=== PATIENT | male | born 1955 | race Caucasian/White ===

== ENCOUNTER 2019-02-14 03:00 | Inpatient (IN) | payer OTHER ==
[2019-02-14] VITALS (29 sets, daily range): BP systolic 101–189; BP diastolic 57–110
[~2019-02-14] VITALS: Ht 177.8 cm; Wt 140.2 kg
--- NOTE | 2019-02-14 03:15 | NUR ---
Patient arrived to room at 0245 via EMS. Patient transferred to bed and placed on monitor. Patient AOX4. Patient oriented to room surroundings. NIH scale completed upon admission. Patient on 2LNC. Patient able to answer admission questions. Medications reconciled via home list brought in by patient.
[2019-02-14] MEDS ORDERED: DULA0.75 SQ (04:21)
[2019-02-14] MEDS ORDERED: INSU100V13 SQ (04:21)
[2019-02-14] MEDS ORDERED: INSU100I41 SQ (04:21)
[2019-02-14] MEDS ORDERED: METF10007 PO (04:21)
[2019-02-14] MEDS ORDERED: CHOL100013 PO (04:21)
[2019-02-14] MEDS ORDERED: LOSA25TA54 PO (04:21)
[2019-02-14] MEDS ORDERED: ALLO100T PO (04:21)
[2019-02-14] MEDS ORDERED: ALLO300T PO (04:21)
[2019-02-14] MEDS ORDERED: ATOR40TA59 PO (04:21)
[2019-02-14] MEDS ORDERED: DOXA2TAB2 PO (04:21)
[2019-02-14] MEDS ORDERED: COLC0.6T34 PO (04:21)
--- NOTE | 2019-02-14 04:33 | NUR ---
Nursing Note: Pt states that he had his wallet. Wallet did not get here from [facility]. Called [place] ED and they saw it in the green patient belongings bag. Called EMS and they stated that they left the wallet at his house because there was "significant robison" in there. Informed Patient and his . [facility] completed and scored 6.
[2019-02-14 07:54] LABS: BASO # 0.1 x10^3/uL (0.0-0.2); BASO % 1 % (0-3); EOS # 0.2 x10^3/uL (0.0-0.7); EOS % 2 % (0-3); HEMATOCRIT 41.3 % (39.0-53.0); HEMOGLOBIN 14.1 g/dL (13.0-17.5); LYMPH # 3.1 x10^3/uL (1.0-4.8); LYMPH % 32 % (24-48); MEAN CORPUSCULAR HEMOGLOBIN 34 pg (25-35); MEAN CORPUSCULAR HGB CONC 34 g/dL (31-37); MEAN CORPUSCULAR VOLUME 98 fL (79-100); MONO # 0.7 x10^3/uL (0.0-1.1); MONO % 7 % (0-9); NEUT # 5.6 x10^3/uL (1.8-7.7); NEUT % 59 % (31-73); PLATELET COUNT 210 x10^3/uL (140-400); RED CELL DISTRIBUTION WIDTH 13.7 % (11.5-14.5); WHITE BLOOD COUNT 9.6 x10^3/uL (4.0-11.0)
[2019-02-14 08:02] LABS: PROTHROMBIN TIME PATIENT 12.6 SEC (11.7-14.0)
[2019-02-14 08:28] LABS: ALBUMIN 3.8 g/dL (3.4-5.0); ALBUMIN/GLOBULIN RATIO 1.3 (1.0-1.7); CALCIUM 8.7 mg/dL (8.5-10.1); TOTAL BILIRUBIN 0.8 mg/dL (0.2-1.0); TOTAL PROTEIN 6.8 g/dL (6.4-8.2)
--- NOTE | 2019-02-14 09:34 | RAD ---
EXAM: CT HEAD WITHOUT CONTRAST. HISTORY: Intracranial hemorrhage. TECHNIQUE: Computed tomography of the head was performed without intravenous contrast. *One or more of the following individualized dose reduction techniques were utilized for this examination: 1. Automated exposure control. 2. Adjustment of the mA and/or kV according to patient size. 3. Use of iterative reconstruction technique. COMPARISON: 02/14/2019. FINDINGS: An intraparenchymal hematoma within the right thalamus measures 2.6 x 1.5 cm. There is intraventricular extension along the right ventricular body. A small amount of clot within the occipital horns has increased slightly on the left. Ventricular size is unchanged. Vasogenic edema about the intraparenchymal hematoma has increased mildly without significant mass effect. There is mild mucosal thickening in the right maxillary sinus. There are changes of bilateral cataract surgery. The temporal bones are unremarkable. The calvarium reveals no suspicious lesions. IMPRESSION: 1. Slightly increased vasogenic edema about the right thalamic intraparenchymal hematoma. Intraventricular clot has increased slightly. Electronically signed by: Candy Brown MD (02/14/2019 9:31 AM) [facility]
--- NOTE | 2019-02-14 10:27 | HP ---
ADMIT DATE: 02/14/2019 HISTORY OF PRESENT ILLNESS: The patient is a 63-year-old male patient who was brought to the Emergency Room of [facility] with a complaint of sudden onset of slurring speech and weakness of his left leg and arm. He tried to get up at home and fell because of the weakness [facility] and therefore, he was brought to the Emergency Room of [facility] where he was evaluated. He was taken immediately to the CT and had a CT scan of the head, which showed that he has right intracerebral bleed and therefore he was transferred to [facility] ICU as per Dr. Edwards recommendation. His NIH score was 8 on arrival. When I saw him this morning, he was awake, alert, responding appropriately. He denied any headache, denied any nausea or vomiting. Denied any blurring of vision, tingling, or numbness. He continued to have weakness of both left upper and left lower extremities. PAST MEDICAL HISTORY: Significant for hypertension, hyperlipidemia, and type 2 diabetes mellitus. 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 He has also benign prostatic hypertrophy. PAST SURGICAL HISTORY: Significant for bilateral cataract extraction as well as tonsillectomy. ALLERGIES: He apparently has no known drug allergies. MEDICATIONS: He is currently on following medications: He is on colchicine 0.6 mg once a day, doxazosin 1 mg tablet once a day, allopurinol 300 mg tablet once a day, metformin extended release 1000 mg twice a day, atorvastatin 40 mg at bedtime, cholecalciferol (vitamin D) 1000 international unit once a day, and losartan 25 mg once a day. He is on NovoLog FlexPen 38 units with dinner. He is on Levemir insulin 90 units at night. He is also on Trulicity 0.75 mg in 0.5 mL. He is not taking any Victoza. Indomethacin, atenolol, and lisinopril were discontinued. He has had his flu shot in 12/2018. FAMILY HISTORY: He has 2 brothers and 2 sisters, has 1 older sister and the rest are all younger, they are apparently healthy. His father at the age of 78 because of complication of end-stage renal disease and stroke. Mother is still alive at age of 83 and apparently healthy. SOCIAL HISTORY: He is , has 2 sons and 1 daughter. He does not smoke, drink alcohol, or use any recreational drugs. 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 REVIEW OF SYSTEMS: The patient has had bilateral cataract extraction, but denied any glaucoma or macular degeneration. Denied any earache, tinnitus, or sensorineural deafness. Denied any nosebleeds, stuffy nose, or postnasal drip. Denied any sore throat, sore tongue, toothache, hoarseness of voice, or difficulty swallowing. He denied any nausea, vomiting, diarrhea, or constipation. Denied any hematemesis, melena, or hematochezia. Denied any dysuria, frequency, or hematuria. He denied any chest pain, shortness of breath, orthopnea, or paroxysmal nocturnal dyspnea. He said that he is to have a dry hacking cough that was resolved after they discontinued his lisinopril. Denied any dizziness, lightheadedness, obviously he has weakness on the left side, although he is still able to move his left upper and lower extremities. PHYSICAL EXAMINATION: GENERAL: When I examined him, he looked well with no pallor, jaundice, cyanosis or thyromegaly. No jugular venous distention. No limb edema. VITAL SIGNS: His heart rate was 97, blood pressure was 162/63, temperature was 97.9, respiratory rate was 19, and oxygen saturation was 95% on 2 liters of oxygen. HEAD, EYES, EARS, NOSE, AND THROAT: Showed normocephalic and atraumatic. NECK: Supple. HEART: Normal first and second heart sounds. No gallop or murmur. CHEST: Clear to auscultation. No crepitation or rhonchi. ABDOMEN: Distended, soft, nontender. NEUROLOGIC: He was awake, alert, responding appropriately. All his cranial nerves are intact. He has weakness in his both left upper and left lower extremities, probably 3/5 compared to 5/5 on the right side. LABORATORY DATA: He has had lab work done, which showed his white cell count was 8900, hemoglobin 14, hematocrit 41, MCV 100, and platelet count of 215,000 with normal manual differential. His prothrombin time was 9.9, INR of 1, aPTT was 24, and D-dimer was 0.59. His chemistry showed serum sodium of 143, potassium of 4, chloride 105, bicarbonate 28, anion gap of 10, BUN 19, creatinine 1.2, estimated GFR was 61 mL per minute. His glucose was 181, calcium was 9, and magnesium was 1.3. Total bilirubin, AST, ALT, alkaline phosphatase were normal. CK was 275. Beta-natriuretic peptide was 24. First set of cardiac enzymes showed troponin to be less than 0.017. Total protein was 6.7, albumin was 3.7. Lipase was 92. His chest x-ray showed that the heart is borderline enlarged. The pulmonary vasculature is normal. Lungs and pleural margins are clear. CT scan of the head showed that there is an acute bleed in the right rodrigues radiata that measures 4.2 x 2.4 cm and continued inferiorly into the right thalamus, continued anteriorly and medially to the caudate nucleus. The carranza and white matter appears normal and symmetrical for the patient's age. There is no midline shift, extraaxial fluid collection, or hydrocephalus. There is no focal loss of hahn white matter distention to suggest an acute ischemia. ASSESSMENT AND PLAN: The patient was transferred to [facility] ICU as per Dr. Edwards's recommendation. We will obviously repeat his CT scans, and we will consult Physical and Occupational Therapy as well as Speech Therapy as he is complaining of dry mouth and would like to have a drink. DEBRA BERMAN MD DR: ALEJANDRO/ivanna JOB#: [id number] / [id number]
--- NOTE | 2019-02-14 11:31 | NUR ---
Bedside Swallow evaluation completed. Please refer to full report in intervention section for additional information. Impressions: Moderate oropharyngeal dysphagia w/ L side pocketing of solids and subtle s/s aspiration across consistencies that increased as trials progressed or w/ larger volume trials. Currently no safe consistency identified and pt is considered high risk of aspiration for PO. Recommendations: NPO. ST f/u for dysphagia. Frequent oral care. Pt may have 1-2 single ice chips after oral care under nursing supervision. D/w RN, pt and pt's . Swallowing precautions posted in room.
--- NOTE | 2019-02-14 16:00 | NUR ---
Cardene gtt restarted d/t blood pressure increasing back to 144 systolic.
--- NOTE | 2019-02-14 18:54 | PDOC2 ---
NEUROLOGY CONSULT Date of Admission Date of Admission Full Report Dictated Patient is a pleasant 63-year-old man who developed symptoms at 1 AM with left- sided hemiparesis, left-sided weakness, dysarthria and trouble swallowing. He went to [facility] emergency room where a CT scan revealed a right thalamic hemorrhage. There was some intraventricular extension. A follow-up CT scan this morning did not reveal increased size but slightly more edema but no mass effect. Neurologically his speech is dysarthric. He failed the bedside swallowing exam. His arm is weaker than his leg. He has sensory shading on the left side of his body. Prognosis is fair to good. He will require inpatient r ehabilitation. He has untreated sleep apnea, morbid obesity, diabetes, hyperlipidemia and hypertension. DATE: 02/14/19 TIME: 18:52 Current Medications Current Medications Current Medications Nicardipine HCl 50 mg/Sodium Chloride 250 ml @ 25 mls/hr CONT PRN IV SEE I/O RECORD Last administered on 02/14/19at 16:05; Start 02/14/19 at 03:45 Active Scripts Active Reported Metformin Hcl 1,000 Mg Tablet 2,000 Mg PO HS Trulicity (Dulaglutide) 0.75 Mg/0.5 Ml Pen.injctr 0.75 Mg SQ HS Levemir (Insulin Detemir) 100 Unit/1 Ml Vial 90 Unit SQ HS Novolin 70-30 Flexpen (Insulin NPH Hum/Reg Insulin Hm) 100 Unit/1 Ml Insuln.pen 38 Unit SQ TIDWMEALS Losartan Potassium (Losartan Potassium) 25 Mg Tablet 25 Mg PO HS Vitamin D (Cholecalciferol (Vitamin D3)) 1,000 Unit Capsule 1 Cap PO HS 30 Days Atorvastatin Calcium 40 Mg Tablet 1 Tab PO QHS Allopurinol 300 Mg Tablet 1 Tab PO HS Allopurinol 100 Mg Tablet 1 Tab PO HS Doxazosin Mesylate 2 Mg Tablet 0.5 Tab PO HS Colcrys (Colchicine) 0.6 Mg Tablet 1 Tab PO HS 30 Days Allergies Allergies: Coded Allergies: exenatide (Verified Allergy, Severe, ANGIOEDEMA, 02/14/19) Vitals VITALS Vital Signs Date Time Temp Pulse Resp B/P (MAP) Pulse Ox O2 Delivery O2 Flow Rate FiO2 02/14/19 18:00 98 26 109/86 (94) 95 Nasal Cannula 3.0 02/14/19 16:00 98.2 98.2 Labs Labs Laboratory Tests Test 02/14/19 07:10 02/14/19 12:14 02/14/19 17:13 White Blood Count 9.6 x10^3/uL (4.0-11.0) Red Blood Count 4.20 x10^6/uL (4.30-5.70) Hemoglobin 14.1 g/dL (13.0-17.5) Hematocrit 41.3 % (39.0-53.0) Mean Corpuscular Volume 98 fL (79-100) Mean Corpuscular Hemoglobin 34 pg (25-35) Mean Corpuscular Hemoglobin Concent 34 g/dL (31-37) Red Cell Distribution Width 13.7 % (11.5-14.5) Platelet Count 210 x10^3/uL (140-400) Neutrophils (%) (Auto) 59 % (31-73) Lymphocytes (%) (Auto) 32 % (24-48) Monocytes (%) (Auto) 7 % (0-9) Eosinophils (%) (Auto) 2 % (0-3) Basophils (%) (Auto) 1 % (0-3) Neutrophils # (Auto) 5.6 x10^3/uL (1.8-7.7) Lymphocytes # (Auto) 3.1 x10^3/uL (1.0-4.8) Monocytes # (Auto) 0.7 x10^3/uL (0.0-1.1) Eosinophils # (Auto) 0.2 x10^3/uL (0.0-0.7) Basophils # (Auto) 0.1 x10^3/uL (0.0-0.2) Prothrombin Time 12.6 SEC (11.7-14.0) Prothromb Time International Ratio 1.0 (0.8-1.1) Sodium Level 142 mmol/L (136-145) Potassium Level 4.0 mmol/L (3.5-5.1) Chloride Level 105 mmol/L (98-107) Carbon Dioxide Level 25 mmol/L (21-32) Anion Gap 12 (6-14) Blood Urea Nitrogen 18 mg/dL (8-26) Creatinine 1.0 mg/dL (0.7-1.3) Estimated GFR (Cockcroft-Gault) 76.0 BUN/Creatinine Ratio 18 (6-20) Glucose Level 199 mg/dL (70-99) Calcium Level 8.7 mg/dL (8.5-10.1) Total Bilirubin 0.8 mg/dL (0.2-1.0) Aspartate Amino Transf (AST/SGOT) 35 U/L (15-37) Alanine Aminotransferase (ALT/SGPT) 48 U/L (16-63) Alkaline Phosphatase 61 U/L (46-116) Total Protein 6.8 g/dL (6.4-8.2) Albumin 3.8 g/dL (3.4-5.0) Albumin/Globulin Ratio 1.3 (1.0-1.7) Glucose (Fingerstick) 253 mg/dL (70-99) 210 mg/dL (70-99) Laboratory Tests Test 02/14/19 07:10 02/14/19 12:14 02/14/19 17:13 White Blood Count 9.6 x10^3/uL (4.0-11.0) Red Blood Count 4.20 x10^6/uL (4.30-5.70) Hemoglobin 14.1 g/dL (13.0-17.5) Hematocrit 41.3 % (39.0-53.0) Mean Corpuscular Volume 98 fL (79-100) Mean Corpuscular Hemoglobin 34 pg (25-35) Mean Corpuscular Hemoglobin Concent 34 g/dL (31-37) Red Cell Distribution Width 13.7 % (11.5-14.5) Platelet Count 210 x10^3/uL (140-400) Neutrophils (%) (Auto) 59 % (31-73) Lymphocytes (%) (Auto) 32 % (24-48) Monocytes (%) (Auto) 7 % (0-9) Eosinophils (%) (Auto) 2 % (0-3) Basophils (%) (Auto) 1 % (0-3) Neutrophils # (Auto) 5.6 x10^3/uL (1.8-7.7) Lymphocytes # (Auto) 3.1 x10^3/uL (1.0-4.8) Monocytes # (Auto) 0.7 x10^3/uL (0.0-1.1) Eosinophils # (Auto) 0.2 x10^3/uL (0.0-0.7) Basophils # (Auto) 0.1 x10^3/uL (0.0-0.2) Prothrombin Time 12.6 SEC (11.7-14.0) Prothromb Time International Ratio 1.0 (0.8-1.1) Sodium Level 142 mmol/L (136-145) Potassium Level 4.0 mmol/L (3.5-5.1) Chloride Level 105 mmol/L (98-107) Carbon Dioxide Level 25 mmol/L (21-32) Anion Gap 12 (6-14) Blood Urea Nitrogen 18 mg/dL (8-26) Creatinine 1.0 mg/dL (0.7-1.3) Estimated GFR (Cockcroft-Gault) 76.0 BUN/Creatinine Ratio 18 (6-20) Glucose Level 199 mg/dL (70-99) Calcium Level 8.7 mg/dL (8.5-10.1) Total Bilirubin 0.8 mg/dL (0.2-1.0) Aspartate Amino Transf (AST/SGOT) 35 U/L (15-37) Alanine Aminotransferase (ALT/SGPT) 48 U/L (16-63) Alkaline Phosphatase 61 U/L (46-116) Total Protein 6.8 g/dL (6.4-8.2) Albumin 3.8 g/dL (3.4-5.0) Albumin/Globulin Ratio 1.3 (1.0-1.7) Glucose (Fingerstick) 253 mg/dL (70-99) 210 mg/dL (70-99) ANNA GRISSOM MD Feb 14, 2019 18:54
--- NOTE | 2019-02-14 20:01 | PDOC ---
Provider Note Provider Note Patient seen and examined at 1300 admitted with left-sided hemiparesis, left-sided weakness, dysarthria and trouble swallowing. He went to [facility] emergency room where a CT scan re vealed a right thalamic hemorrhage. There was some intraventricular extension. on exam speech is dysarthric. His arm is weaker than his leg. He has sensory shading on the left side of his body. will likely need inpatient rehab will follow MARIANA EVERETT MD Feb 14, 2019 20:01
--- NOTE | 2019-02-14 20:47 | CONS ---
DATE OF CONSULTATION: 02/14/2019 REFERRING PHYSICIAN: Elyse Alejandre M.D. REASON FOR CONSULTATION: Thalamic hemorrhage with intraventricular extension. HISTORY OF PRESENT ILLNESS: The patient is a very pleasant 63-year-old man who noted symptoms early this morning around 1:00 a.m. 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 He was getting ready to administer his insulin when suddenly he dropped the insulin and could not use his left arm. He tried to get up and he could not use his left leg. He fell because of the weakness. 911 was called and he was taken to the Emergency Room at [facility]. CT scan was performed and revealed a right thalamic hemorrhage. He was transferred to [facility] for further evaluation. He does not complain of any headache. He has never had similar symptoms. He does have longstanding diabetes for 15 years. He has hyperlipidemia, hypertension, and untreated sleep apnea as well as morbid obesity. He has not had any difficulty moving the right side, but he has weakness on the left side with numbness. He has not noticed any loss of vision or hearing. He has not noticed any cognitive loss. He has noticed his speech is off and he has difficulty swallowing. PAST MEDICAL HISTORY: 1. Hypertension. 2. Hyperlipidemia. 3. Type 2 diabetes for 15 years. 4. Morbid obesity. 5. Untreated sleep apnea. 6. History of gout. 7. Benign prostatic hypertrophy. 8. Bilateral cataract extraction with lens implants. 9. Tonsillectomy. ALLERGIES: No known allergies to drugs. MEDICATIONS PRIOR TO ADMISSION: Colchicine 0.6 mg, doxazosin 1 mg, allopurinol 300 mg, metformin extended release 1000 mg twice per day, atorvastatin 40 mg, vitamin D 1000 International Units, losartan 25 mg, and NovoLog FlexPen. He also uses Levemir and Trulicity 0.75 mg. FAMILY HISTORY: His father at 78 from complications of end-stage renal disease and stroke. Mother is living at 83. He has 2 brothers and 2 sisters, who are healthy. SOCIAL HISTORY: He is and has 2 sons and a daughter. He has grandchildren. They all live out of town. He is a lifelong nonsmoker. He does not drink alcohol or use recreational drugs. 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 REVIEW OF SYSTEMS: He does not have any headache. There has been no change in vision or hearing. He has had a change in speech and swallow. He does not have nose or sinus trouble. He does not have shortness of breath, chest or abdominal pain. Does not currently complain of bone or joint pain. There has been no fever or rash. Does not have any gastrointestinal or genitourinary complaints. Does have numbness on the left side of his body. He does have weakness on the left side of his body. He does not complain of easy bruising, bleeding, or swelling. He does have sleep apnea. He does have diabetes. PHYSICAL EXAMINATION: VITAL SIGNS: The blood pressure was 144/65, pulse 94, respirations 22, temperature 98.2 degrees Fahrenheit. Oximetry was 97% on 3 L nasal cannula. His weight was 138.4 kg, height 70 inches with a calculated body mass index of 43.8. GENERAL: He was alert, awake, and cooperative. Speech was slightly dysarthric, but easily understandable. He did not have any word-finding difficulty. His fund of recent and remote knowledge was intact. Attention and concentration were intact. He appeared well groomed and well nourished. NEUROLOGIC: Examination of the cranial nerves revealed visual wilkins were full to confrontation. Extraocular movements were intact. The eyes were conjugate. Pursuit movements were smooth and saccadic eye movements were without dysmetria. Pupils were 3 mm and reactive. He was not able to cooperate for funduscopic examination. Facial sensation was shaded in the left cheek. The muscles of mastication and facial expression were powerful, although there was delay of initiation on the left side to smile. Hearing was intact to finger rub. The palate arched symmetrically and the tongue was midline with full range of motion. Sternocleidomastoid and trapezius were powerful. Muscle bulk and tone were normal. Power was full on the right side. On the left side, there was weakness with finger abduction, elbow flexion and extension and arm abduction 4/5. The finger abduction was 3/5. In the lower extremities, he had weakness of hip and knee flexion 4-4+/5. Dorsi and plantar flexion were fairly powerful. Reflexes were diminished throughout. The left toe was upgoing whereas the right toe was downgoing. Coordination testing with [id number], [id number], fine motor and rapid alternating movements could not be performed on the left. He was very impaired. When he tried to do [id number], he had ataxia. Sensory exam was shaded on the left side to pain, light touch, proprioception, graphesthesia, cold thermal, and vibration. He could perceive some vibration in the arm, but not in the leg. He had extinction to double simultaneous stimulation on the left. He could not feel light touch even with his eyes open. Gait was not testable. NECK: Auscultation of the carotid arteries did not reveal a bruit. HEART: Rhythm was regular without a murmur. EXTREMITIES: Peripheral pulses were symmetric. There was some edema in the feet. REVIEW OF LABORATORY DATA: CBC revealed a normal white blood cell count, hemoglobin, hematocrit, and platelet count. Chemistry from 02/14/2019 revealed normal electrolytes, BUN, and creatinine. The GFR was calculated at 76. Glucose was elevated at 199. Calcium was normal as was total protein and albumin. Liver enzymes were not elevated. PT/INR was 1. A CT scan of the brain was performed on 02/14/2019 and revealed a 2.6 x 1.5 cm right thalamic hemorrhage with intraventricular extension along the right ventricular body. There was a small clot within the occipital horns. There was no evidence of developing edema. There was some vasogenic edema about the intraparenchymal hemorrhage that was slightly increased, but there was no significant mass effect. IMPRESSION: The patient is a pleasant 63-year-old man who had a hypertensive hemorrhage in the right thalamus causing dysarthria, dysphagia, left hemiparesis, and left hemisensory loss. He still has some strength in the left leg. Prognosis for recovery is fair. RECOMMENDATIONS: We discussed the importance of treating the sleep apnea as this is a risk factor for stroke. He will also need tighter control of the diabetes, good control of blood pressure, and we will need to measure a fasting lipid profile to make sure the LDL cholesterol is less than 70 with his current medical regimen. I appreciate being involved in his care. Ultimately, he will need inpatient rehabilitation. ANNA GRISSOM MD DR: ARSALAN/ivanna JOB#: [id number] / [id number] ranjit Ocampo Dr.
[2019-02-15] VITALS (18 sets, daily range): BP systolic 124–160; BP diastolic 65–90
--- NOTE | 2019-02-15 02:00 | NUR ---
Patient requested to sit at the side of the bed--assisted with by 2RNs; patient sat at the side of the bed [id number]. Patient did lean minimally to the left but was able to maintain his balance. Patient is now able to lift his left arm on command and keep it elevated without drift. Patient continues to slur his words but is easily understood, there is no change in minimal droop of left side of mouth. RN stayed with the patient the entire time while he was sitting.
[2019-02-15 04:55] LABS: HEMATOCRIT 40.3 % (39.0-53.0); HEMOGLOBIN 13.7 g/dL (13.0-17.5); RED BLOOD COUNT 4.09 x10^6/uL (4.30-5.70); RED CELL DISTRIBUTION WIDTH 13.6 % (11.5-14.5); WHITE BLOOD COUNT 8.9 x10^3/uL (4.0-11.0)
[2019-02-15 06:42] LABS: CALCIUM 8.7 mg/dL (8.5-10.1); POTASSIUM 3.9 mmol/L (3.5-5.1)
[2019-02-15 06:43] LABS: CHOLESTEROL/HDL RATIO 5.2
--- NOTE | 2019-02-15 08:50 | PN ---
DATE: 02/15/2019 SUBJECTIVE: The patient is resting slightly propped up in bed, no apparent distress, awake, alert. On questioning him, he denied any complaint, in particular, denied any headache, nausea, vomiting. He was seen in consultation by the neurosurgeon and neurologist. He is not a candidate for any surgical intervention. The plan is to do a CT angio of the neck and brain and he probably eventually need to be in a rehab center. He prefers to go to the [place]. PHYSICAL EXAMINATION: GENERAL: When I examined him this morning, he looked well and was clearly in no apparent respiratory distress. No pallor, jaundice, cyanosis or thyromegaly. No jugular venous distention. No lower limb edema. VITAL SIGNS: Her heart rate was 92, blood pressure was 130/74, temperature was 98.6, respiratory rate 20, and oxygen saturation was 96% on 3 liters of oxygen by nasal cannula. HEAD, EYES, EARS, NOSE AND THROAT: Showed normocephalic, atraumatic. NECK: Supple. HEART: Showed normal first and second heart sounds. No gallop, rub or murmur. CHEST: Clear to auscultation. No crepitation or rhonchi. ABDOMEN: Distended, soft, nontender. NEUROLOGIC: He is awake, alert, responding appropriately. All cranial nerves intact. Continued to have some dysarthria and left sided hemiparesis, worse in the upper than lower extremity. His intake and output are incompletely recorded. LABORATORY DATA: Her lab work this morning showed a white cell count of 8900, hemoglobin 13.7, hematocrit 40, MCV 99 and platelet count 211,000. His chemistry showed a serum sodium of 143, potassium 3.9, chloride 105, bicarbonate 26, anion gap of 12, BUN 20, creatinine 1, estimated GFR was 76 mL per minute, his glucose was 107, calcium was 8.7. Serum triglycerides were 195, total cholesterol 140, LDL cholesterol was 74 and HDL was 27, ratio 5.2. His prothrombin time was 12.6, INR 1. ASSESSMENT: 1. 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 Other medical problems include, 2. Hypertension. 3. Hyperlipidemia. 4. Type 2 diabetes mellitus. 5. Morbid obesity. 6. Untreated obstructive sleep apnea. 7. Gout. 8. Benign prostatic hypertrophy. PLAN: To await the Speech Therapy for video swallowing evaluation. Start the process of physical and occupational therapy. He will have CT angio of the neck and brain and hopefully tomorrow, we can discharge him to a long term facility and/or the [facility] for inpatient rehabilitation. DEBRA BERMAN MD DR: ALEJANDRO/ivanna JOB#: [id number] / [id number]
[2019-02-15] MEDS ORDERED: ACETAMINOPHEN 650 MG SUPP.RECT. PR PRN (09:15)
[2019-02-15] MEDS ORDERED: LABETALOL 20 MG/4 ML DISP.SYRIN. IVP PRN (09:15)
[2019-02-15] MEDS ORDERED: 0.9 % SODIUM CHLORIDE 10 ML DISP.SYRIN. IV PRN (09:15)
[2019-02-15] MEDS ORDERED: ONDANSETRON PF 4 MG/2 ML VIAL. IV PRN (09:15)
[2019-02-15] MEDS ORDERED: PHARMACY TO REVIEW MEDS MC PRN (09:15)
[2019-02-15] MEDS ORDERED: IOHEXOL 300 MG/ML 100ML VIAL. IV ONE (09:30)
[2019-02-15] MEDS: hydrALAZINE 20 MG/ML VIAL. IVP PRN ×2 (09:51→11:26)
--- NOTE | 2019-02-15 11:19 | PDOC ---
PROGRESS NOTES Assessment Hypertensive right thalamic hemorrhage with left-sided sensorimotor findings, right ptosis. There is intraventricular extension. Clinically he is better Lipid profile noted Plan CT angiogram MRI brain Rehabilitation modalities Echocardiogram Await swallow evaluation Resume statin when able to swallow Neurosurgery is following Possible transfer out of ICU today Treat the sleep apnea as outpatient Tighter control of the diabetes, good control of blood pressure Discussed with patient and his . Subjective Denies headache Objective Vital Signs Date Time Temp Pulse Resp B/P (MAP) Pulse Ox O2 Delivery O2 Flow Rate FiO2 02/15/19 11:08 86 22 160/90 (113) 97 Nasal Cannula 3.0 02/15/19 07:57 98.6 98.6 Intake and Output 02/15/19 07:00 Intake Total 763.94 ml Output Total 1300 ml Balance -536.06 ml Intake Oral 0 ml IV Total 763.94 ml Output Urine Total 1300 ml PHYSICAL EXAM Alert. Oriented to time, place and person. PERRL. EOMI. CN: Right ptosis Muscle tone: normal. Muscle strength: 4/5 left hemiparesis DTR: 2+ Plantar reflex: flexor Gait: not examined in bed. Sensory exam: patchy loss left face, arm, leg. No cerebellar signs elicited. Review of Relevant I have reviewed the following items julian (where applicable) has been applied. Labs Laboratory Tests Test 02/14/19 07:10 02/14/19 12:14 02/14/19 17:13 02/14/19 23:52 White Blood Count 9.6 x10^3/uL (4.0-11.0) Red Blood Count 4.20 x10^6/uL (4.30-5.70) Hemoglobin 14.1 g/dL (13.0-17.5) Hematocrit 41.3 % (39.0-53.0) Mean Corpuscular Volume 98 fL (79-100) Mean Corpuscular Hemoglobin 34 pg (25-35) Mean Corpuscular Hemoglobin Concent 34 g/dL (31-37) Red Cell Distribution Width 13.7 % (11.5-14.5) Platelet Count 210 x10^3/uL (140-400) Neutrophils (%) (Auto) 59 % (31-73) Lymphocytes (%) (Auto) 32 % (24-48) Monocytes (%) (Auto) 7 % (0-9) Eosinophils (%) (Auto) 2 % (0-3) Basophils (%) (Auto) 1 % (0-3) Neutrophils # (Auto) 5.6 x10^3/uL (1.8-7.7) Lymphocytes # (Auto) 3.1 x10^3/uL (1.0-4.8) Monocytes # (Auto) 0.7 x10^3/uL (0.0-1.1) Eosinophils # (Auto) 0.2 x10^3/uL (0.0-0.7) Basophils # (Auto) 0.1 x10^3/uL (0.0-0.2) Prothrombin Time 12.6 SEC (11.7-14.0) Prothromb Time International Ratio 1.0 (0.8-1.1) Sodium Level 142 mmol/L (136-145) Potassium Level 4.0 mmol/L (3.5-5.1) Chloride Level 105 mmol/L (98-107) Carbon Dioxide Level 25 mmol/L (21-32) Anion Gap 12 (6-14) Blood Urea Nitrogen 18 mg/dL (8-26) Creatinine 1.0 mg/dL (0.7-1.3) Estimated GFR (Cockcroft-Gault) 76.0 BUN/Creatinine Ratio 18 (6-20) Glucose Level 199 mg/dL (70-99) Calcium Level 8.7 mg/dL (8.5-10.1) Total Bilirubin 0.8 mg/dL (0.2-1.0) Aspartate Amino Transf (AST/SGOT) 35 U/L (15-37) Alanine Aminotransferase (ALT/SGPT) 48 U/L (16-63) Alkaline Phosphatase 61 U/L (46-116) Total Protein 6.8 g/dL (6.4-8.2) Albumin 3.8 g/dL (3.4-5.0) Albumin/Globulin Ratio 1.3 (1.0-1.7) Glucose (Fingerstick) 253 mg/dL (70-99) 210 mg/dL (70-99) 185 mg/dL (70-99) Test 02/15/19 04:10 02/15/19 05:55 White Blood Count 8.9 x10^3/uL (4.0-11.0) Red Blood Count 4.09 x10^6/uL (4.30-5.70) Hemoglobin 13.7 g/dL (13.0-17.5) Hematocrit 40.3 % (39.0-53.0) Mean Corpuscular Volume 99 fL (79-100) Mean Corpuscular Hemoglobin 34 pg (25-35) Mean Corpuscular Hemoglobin Concent 34 g/dL (31-37) Red Cell Distribution Width 13.6 % (11.5-14.5) Platelet Count 211 x10^3/uL (140-400) Sodium Level 143 mmol/L (136-145) Potassium Level 3.9 mmol/L (3.5-5.1) Chloride Level 105 mmol/L (98-107) Carbon Dioxide Level 26 mmol/L (21-32) Anion Gap 12 (6-14) Blood Urea Nitrogen 20 mg/dL (8-26) Creatinine 1.0 mg/dL (0.7-1.3) Estimated GFR (Cockcroft-Gault) 76.0 Glucose Level 207 mg/dL (70-99) Calcium Level 8.7 mg/dL (8.5-10.1) Triglycerides Level 195 mg/dL (0-150) Cholesterol Level 140 mg/dL (0-200) LDL Cholesterol, Calculated 74 mg/dL (0-100) VLDL Cholesterol, Calculated 39 mg/dL (0-40) Non-HDL Cholesterol Calculated 113 mg/dL (0-129) HDL Cholesterol 27 mg/dL (40-60) Cholesterol/HDL Ratio 5.2 Glucose (Fingerstick) 173 mg/dL (70-99) Laboratory Tests Test 02/14/19 12:14 02/14/19 17:13 02/14/19 23:52 02/15/19 04:10 Glucose (Fingerstick) 253 mg/dL (70-99) 210 mg/dL (70-99) 185 mg/dL (70-99) White Blood Count 8.9 x10^3/uL (4.0-11.0) Red Blood Count 4.09 x10^6/uL (4.30-5.70) Hemoglobin 13.7 g/dL (13.0-17.5) Hematocrit 40.3 % (39.0-53.0) Mean Corpuscular Volume 99 fL (79-100) Mean Corpuscular Hemoglobin 34 pg (25-35) Mean Corpuscular Hemoglobin Concent 34 g/dL (31-37) Red Cell Distribution Width 13.6 % (11.5-14.5) Platelet Count 211 x10^3/uL (140-400) Sodium Level 143 mmol/L (136-145) Potassium Level 3.9 mmol/L (3.5-5.1) Chloride Level 105 mmol/L (98-107) Carbon Dioxide Level 26 mmol/L (21-32) Anion Gap 12 (6-14) Blood Urea Nitrogen 20 mg/dL (8-26) Creatinine 1.0 mg/dL (0.7-1.3) Estimated GFR (Cockcroft-Gault) 76.0 Glucose Level 207 mg/dL (70-99) Calcium Level 8.7 mg/dL (8.5-10.1) Triglycerides Level 195 mg/dL (0-150) Cholesterol Level 140 mg/dL (0-200) LDL Cholesterol, Calculated 74 mg/dL (0-100) VLDL Cholesterol, Calculated 39 mg/dL (0-40) Non-HDL Cholesterol Calculated 113 mg/dL (0-129) HDL Cholesterol 27 mg/dL (40-60) Cholesterol/HDL Ratio 5.2 Test 02/15/19 05:55 Glucose (Fingerstick) 173 mg/dL (70-99) Medications Current Medications Nicardipine HCl 50 mg/Sodium Chloride 250 ml @ 25 mls/hr CONT PRN IV SEE I/O RECORD Last administered on 02/14/19at 16:05; Start 02/14/19 at 03:45 Info (Review Meds) 1 ea PRN 1X PRN SEE COMMENTS; Start 02/15/19 at 09:15 Sodium Chloride (Normal Saline Flush) 3 ml QSHIFT PRN IV AFTER MEDS AND BLOOD DRAWS; Start 02/15/19 at 09:15 Acetaminophen (Tylenol Supp) 650 mg PRN Q6HRS PRN SC FEVER > 100.5'F; Start 02/15/19 at 09:15 Labetalol HCl (Normodyne Iv Push) 10 mg PRN Q10MIN PRN IVP HYPERTENSION; Start 02/15/19 at 09:15 Hydralazine HCl (Apresoline Inj) 10 mg PRN Q10MIN PRN IVP HYPERTENSION Last administered on 02/15/19at 09:51; Start 02/15/19 at 09:15 Nicardipine HCl 50 mg/Sodium Chloride 250 ml @ 25 mls/hr CONT PRN IV HYPERTENSION; Start 02/15/19 at 09:15; Status UNV Ondansetron HCl (Zofran) 4 mg PRN Q6HRS PRN IV NAUSEA/VOMITING; Start 02/15/19 at 09:15 Iohexol (Omnipaque 300 Mg/ml) 75 ml 1X ONCE IV Last administered on 02/15/19at 09:30; Start 02/15/19 at 09:30; Stop 02/15/19 at 09:31; Status DC Active Scripts Active Reported Metformin Hcl 1,000 Mg Tablet 2,000 Mg PO HS Trulicity (Dulaglutide) 0.75 Mg/0.5 Ml Pen.injctr 0.75 Mg SQ HS Levemir (Insulin Detemir) 100 Unit/1 Ml Vial 90 Unit SQ HS Novolin 70-30 Flexpen (Insulin NPH Hum/Reg Insulin Hm) 100 Unit/1 Ml Insuln.pen 38 Unit SQ TIDWMEALS Losartan Potassium (Losartan Potassium) 25 Mg Tablet 25 Mg PO HS Vitamin D (Cholecalciferol (Vitamin D3)) 1,000 Unit Capsule 1 Cap PO HS 30 Days Atorvastatin Calcium 40 Mg Tablet 1 Tab PO QHS Allopurinol 300 Mg Tablet 1 Tab PO HS Allopurinol 100 Mg Tablet 1 Tab PO HS Doxazosin Mesylate 2 Mg Tablet 0.5 Tab PO HS Colcrys (Colchicine) 0.6 Mg Tablet 1 Tab PO HS 30 Days Vitals/I & O Vital Sign - Last 24 Hours 02/14/19 02/14/19 02/14/19 02/14/19 12:00 12:00 13:00 14:00 Temp 98.2 98.2 Pulse 98 105 102 Resp B/P (MAP) 127/66 (86) 136/66 (89) 118/91 (100) Pulse Ox 94 96 95 O2 Delivery Nasal Cannula Nasal Cannula Nasal Cannula Nasal Cannula O2 Flow Rate 3.0 4.0 3.0 3.0 02/14/19 02/14/19 02/14/19 02/14/19 15:00 16:00 16:00 17:00 Temp 98.2 98.2 Pulse 90 94 95 Resp 28 24 B/P (MAP) 111/61 (78) 144/65 (91) 114/67 (83) Pulse Ox 90 97 96 O2 Delivery Nasal Cannula Nasal Cannula Nasal Cannula Nasal Cannula O2 Flow Rate 3.0 3.0 3.0 3.0 02/14/19 02/14/19 02/14/19 02/14/19 18:00 19:00 20:00 20:00 Temp 98.9 98.9 Pulse 98 94 84 Resp 26 16 20 B/P (MAP) 109/86 (94) 111/62 (78) 109/57 (74) Pulse Ox 95 95 94 O2 Delivery Nasal Cannula Nasal Cannula Nasal Cannula Nasal Cannula O2 Flow Rate 3.0 3.0 3.0 3.0 02/14/19 02/14/19 02/14/19 02/14/19 20:30 20:45 21:00 22:00 Pulse 96 86 86 82 Resp 20 20 20 28 B/P (MAP) 117/63 (81) 129/66 (87) 113/69 (84) 123/67 (85) Pulse Ox 97 94 96 94 O2 Delivery Nasal Cannula Nasal Cannula Nasal Cannula Nasal Cannula O2 Flow Rate 3.0 3.0 3.0 3.0 02/14/19 02/14/19 02/14/19 02/15/19 23:00 23:59 23:59 01:00 Temp 97.9 97.9 Pulse 76 86 81 Resp 20 20 20 B/P (MAP) 124/63 (83) 109/63 (78) 125/65 (85) Pulse Ox 94 92 96 O2 Delivery Nasal Cannula Nasal Cannula Nasal Cannula Venturi Mask O2 Flow Rate 3.0 3.0 3.0 02/15/19 02/15/19 02/15/19 02/15/19 02:00 02:30 03:00 04:00 Temp 98.4 98.4 Pulse 98 94 92 90 Resp 24 24 22 B/P (MAP) 153/80 (104) 140/83 (102) 144/75 (98) 141/78 (99) Pulse Ox 100 96 93 93 O2 Delivery Venturi Mask Venturi Mask Room Air Room Air 02/15/19 02/15/19 02/15/19 02/15/19 04:00 05:00 06:00 07:00 Pulse 87 91 94 Resp 24 18 18 B/P (MAP) 156/71 (99) 141/76 (97) 154/69 (97) Pulse Ox 93 95 95 O2 Delivery Room Air Room Air Room Air Venturi Mask O2 Flow Rate 02/15/19 02/15/19 02/15/19 02/15/19 07:57 07:58 09:03 09:51 Temp 98.6 98.6 Pulse 92 86 82 Resp 20 B/P (MAP) 130/74 (92) 124/70 (88) 133/88 Pulse Ox 96 O2 Delivery Nasal Cannula Nasal Cannula O2 Flow Rate 3.0 3.0 02/15/19 02/15/19 02/15/19 10:00 10:51 11:08 Pulse 82 80 86 Resp 20 22 B/P (MAP) 149/89 (109) 145/80 (101) 160/90 (113) Pulse Ox 94 96 97 O2 Delivery Nasal Cannula Nasal Cannula Nasal Cannula O2 Flow Rate 3.0 3.0 3.0 Intake and Output 02/14/19 02/14/19 02/15/19 15:00 23:00 07:00 Intake Total 570.94 ml 193 ml Output Total 500 ml 800 ml Balance 70.94 ml -[address] 02/14: An intraparenchymal hematoma within the right thalamus measures 2.6 x 1.5 cm. There is intraventricular extension along the right ventricular body. A small amount of clot within the occipital horns has increased slightly on the left. Ventricular size is unchanged. Vasogenic edema about the intraparenchymal hematoma has increased mildly without significant mass effect. There is mild mucosal thickening in the right maxillary sinus. There are changes of bilateral cataract surgery. The temporal bones are unremarkable. The calvarium reveals no suspicious lesions. IMPRESSION: 1. Slightly increased vasogenic edema about the right thalamic intraparenchymal hematoma. Intraventricular clot has increased slightly. EUGENE JAIN MD Feb 15, 2019 11:19
--- NOTE | 2019-02-15 12:38 | CARD ---
MR#: [id number] Date of Study: 02/15/2019 Ordering Physician: EUGENE JAIN, Referring Physician: EUGENE JAIN Tech: Isadora Jane VALERIA APPROVED REPORT EXAM: Two-dimensional and M-mode echocardiogram with Doppler, color Doppler with bubble study. Other Information Quality : Technically LimitedHR: 80bpm Rhythm : NSRTechnically limited study due to body habitus. INDICATION CVA/TIA 2D DIMENSIONS RVDd2.8 (2.9-3.5cm)IVSd1.5 (0.7-1.1cm) Aortic Root(2D)3.7 (2.0-3.7cm)LVDd4.5 (3.9-5.9cm) LVOT Diameter2.5 (1.8-2.4cm)PWd1.4 (0.7-1.1cm) LVDs3.1 (2.5-4.0cm)FS (%) 31.5 % SV55.2 mlLVEF(%)59.6 (>50%) M-Mode DIMENSIONS Left Atrium(MM)4.00 (2.5-4.0cm)Aortic Root3.89 (2.2-3.7cm) Aortic Cusp Exc2.96 (1.5-2.0cm) Aortic Valve AoV Peak Cheng.205.9cm/sAoV VTI34.5cm AO Peak GR.17.0mmHgLVOT VTI 25.89cm AO Mean GR.10mmHgAVA (VTI)3.50cm2 Mitral Valve MV E Lwbrxndh68.9cm/sMV DECEL [id number] MV A Ckbjapfj64.7cm/sE/A Ratio1.1 MV A [id number] TDI Lateral E' P. V9.20cm/sMedial E' P. V7.92cm/s E/Lateral E'10.2E/Medial E'11.9 LEFT VENTRICLE The left ventricle is normal size. There is mild to moderate concentric left ventricular hypertrophy. The left ventricular systolic function is normal. The Ejection Fraction is 60-65%. There is normal L V segmental wall motion. Transmitral Doppler flow pattern is Grade II-pseudonormal filling dynamics. RIGHT VENTRICLE The right ventricle is normal size. There is normal right ventricular wall thickness. Right ventricul ar function cannot be assessed due to poor image quality. ATRIA The left atrium size is normal. The right atrium size is normal. The interatrial septum is intact wit h no evidence for an atrial septal defect or patent foramen ovale as noted on 2-D or Doppler imaging. Injection of bubbles is not conclusive due to poor image quality. AORTIC VALVE The aortic valve is normal in structure and function. The aortic valve is mildly thickened. Doppler a nd Color Flow revealed trace aortic regurgitation. There is no significant aortic valvular stenosis. MITRAL VALVE The mitral valve is normal in structure and function. There is no evidence of mitral valve prolapse. There is no mitral valve stenosis. Doppler and Color Flow revealed no mitral valve regurgitation note d. TRICUSPID VALVE The tricuspid valve is not well visualized. Doppler and Color Flow revealed no tricuspid valve regurg itation noted. There is no tricuspid valve prolapse or vegetation. PULMONIC VALVE The pulmonic valve is not well visualized. GREAT VESSELS The aortic root is mildly enlarged. The ascending aorta is Mildly dilated at 4.0cm. The IVC is normal in size and collapses >50% with inspiration. PERICARDIAL EFFUSION There is no evidence of significant pericardial effusion. Critical Notification Critical Value: No <Conclusion> The left ventricular systolic function is normal. The Ejection Fraction is 60-65%. There is normal LV segmental wall motion. Doppler and Color Flow revealed trace aortic regurgitation. There is no evidence of significant pericardial effusion. The ascending aorta is Mildly dilated at 4.0cm. Injection of bubbles is not conclusive due to poor image quality. Recommend PAPA for definitive evaluation if clinical suspicion is high. Signed by : Nnamdi Capps, Electronically Approved : 02/15/2019 12:37:45
--- NOTE | 2019-02-15 13:39 | RAD ---
MRI Brain without contrast History: Right thalamic hemorrhage Technique: Multiplanar, multisequential noncontrast MR imaging was performed of the brain. Comparison: 02/14/[address] exam Findings: As seen on CT, there is signal abnormality of parenchymal hemorrhage centered in the right thalamus about 2.2 cm AP by 1.9 cm transverse by about 2 cm CC. This is variably hyperintense on T1 sequence and centrally hyperintense on the T2 sequence, peripheral T2 hypointense signal. There is associated decreased signal on the gradient echo sequence. There is adjacent moderate vasogenic edema signified by T2 and FLAIR hyperintense signal. There is also intraventricular hemorrhage greater in the right lateral ventricle, also dependently in the occipital horns bilaterally. Septum pellucidum is near the midline. No other separate focus of parenchymal hemorrhage is identified. Cerebellar tonsils are normal in location. There is very minimal T2 and FLAIR hyperintense signal of the periventricular white matter bilaterally, also minimal T2 and FLAIR hyperintense abnormality of the bifrontal deep white matter. Ventricles are not significantly dilated. There is mild diffusion signal abnormality at the periphery of the right thalamic hematoma, no separate focus of restricted diffusion. There has been lens surgery bilaterally. There is very mild right maxillary sinus mucosal thickening. There is preservation of the major arterial flow voids at the skull base. There is mild fluid and thickening of the right mastoid air cells. There is nonspecific heterogeneity of the marrow of the nonexpanded clivus. Impression: 1. There is again acute/early subacute right thalamic parenchymal hematoma with adjacent vasogenic edema, also intraventricular hemorrhage. 2. Other very mild T2 and FLAIR hyperintense signal of the supratentorial parenchyma is probably due to chronic 2 chronic microvascular ischemic disease. Electronically signed by: Jagjit Pollard MD (02/15/2019 1:36 PM) [id number]
--- NOTE | 2019-02-15 14:50 | NUR ---
SS following for discharge planning. SS reviewed pt chart. Pt is from home with spouse and is currently on requiring oxygen. PT/OT recommended acute rehabilitation at discharge. SS met with pt and family in room to discuss discharge planning. Pt requested referral be phoned and faxed to the [facility], ext, [phone]; fax [phone]. SS phoned and faxed referral. Ceci from the [facility] at the [facility] requested that pt complete 10-10EC form to determine co-pay. Form provided to pt. SS will continue to follow for discharge planning.
--- NOTE | 2019-02-15 18:09 | RAD ---
CTA head and neck History: Right thalamic hemorrhage Technique: After bolus of intravenous contrast, volumetric CT data acquisition was acquired of the head and neck. Multiplanar reconstruction images to include MIP and 3-D reconstruction images are submitted. Exposure: One or more of the following individualized dose reduction techniques were utilized for this examination: 1. Automated exposure control 2. Adjustment of the mA and/or kV according to patient size 3. Use of iterative reconstruction technique. Comparison: Noncontrast head CT 02/14/2019 Any determination of stenosis is based on NASCET criteria. CTA head: Findings: Exam is of very limited quality due to the poor contrast bolus in the arteries, grossly visualized internal carotid arteries as well as basilar and intradural vertebral arteries. There is also venous contamination. Exam does not accurately evaluate for aneurysm or stenosis. No obvious increased vascularity is seen near the right thalamic parenchymal hemorrhage. Impression: 1. Exam is very limited as stated, essentially nondiagnostic. Attempt at repeat exam should be considered. Neck CTA: Findings: Exam is limited due to motion as well as poor contrast bolus in the arteries, also venous contamination. There is visualization of segments of the common carotid arteries as well as cervical internal carotid arteries bilaterally although cannot accurately evaluate for dissection flap or stenosis. There is visualization of segments of the vertebral arteries bilaterally. There is degenerative disc disease greatest at C5-6 and C6-7. There is multilevel cervical facet degenerative change. Impression: 1. Exam is very limited stated, cannot accurately evaluate for stenosis or dissection flap on this exam, gross visualization of the cervical arterial vasculature. Electronically signed by: Jagjit Pollard MD (02/15/2019 6:06 PM) [id number]
[2019-02-15] MEDS ORDERED: DEXTROSE 50% 25 GM / 50ML DISP.SYRIN. IV PRN (20:15)
[2019-02-15] MEDS: ATORVASTATIN CALCIUM 40 MG TABLET. PO SCH (22:23)
[2019-02-15] MEDS: DOXAZOSIN MESYLATE 1 MG TABLET. PO SCH (22:25)
[2019-02-15] MEDS: LOSARTAN POTASSIUM 25 MG TABLET. PO SCH (22:25)
[2019-02-15] MEDS: ALLOPURINOL 300 MG TABLET. PO SCH (22:26)
[2019-02-15] MEDS: metFORMIN XR 500 MG TAB.ER.24H PO SCH (22:27)
[2019-02-15] MEDS: CHOLECALCIFEROL (VITAMIN D3) 1,000 UNIT TABLET PO SCH (22:28)
[2019-02-15 23:12] LABS: HEMOGLOBIN A1C 7.9 % (4.8-5.6)
[2019-02-16] VITALS (7 sets, daily range): BP systolic 130–163; BP diastolic 70–104
[2019-02-16] MEDS: INSULIN LISPRO 300 UNITS/3 ML VIAL. SQ SCH ×3 (08:00→17:20)
--- NOTE | 2019-02-16 08:31 | NUR ---
BARRY following pt. BARRY left a voice mail to Malissa at [facility], phone: [phone], ext: [phone] requesting a call back.
--- NOTE | 2019-02-16 10:41 | NUR ---
BARRY received a VM from Malissa stating she did not receive referral from [facility]. Physician also requesting an eval at [facility]. SW spoke with pt and pt wants to go to [facility] as he is employed under [employer] and feels comfortable with their care. Pt currently on phone with insurance to verify questions about extended care application. BARRY discussed usually [facility] not require extended care application if pt's estimated stay is less than 30 days. BARRY faxed referral to [place] [facility] and Left a VM to Malissa. Acceptance pending. Per RN, Neurology would like to do more testing tomorrow. BARRY will continue to follow. Addendum: 02/16/19 at 1058 by OCTAVIANO REDDY Spoke with Malissa, she reported pt will need to the extended care application so he can be informed about his co-pays. Malissa reported she will pass on clinical to reviewing team once all required documents including the extended care application are received.
--- NOTE | 2019-02-16 12:52 | PDOC ---
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 There is intraventricular extension. Hyperlipidemia Non-diagnostic CT angiogram, needs repeat Plan Rehabilitation modalities Does not need transesophageal echocardiogram Resume statin Neurosurgery is following Treat sleep apnea as outpatient Tighter control of the diabetes, good control of blood pressure Patient requests transfer to [place] inpatient rehab if it is necessary. Repeat CT angiogram and head CT tomorrow Aim for discharge as soon as tomorrow after repeat CT studies are completed Discussed with patient and his . Subjective No complaints, denies headache Objective Vital Signs Date Time Temp Pulse Resp B/P (MAP) Pulse Ox O2 Delivery O2 Flow Rate FiO2 02/16/19 11:38 98.1 88 18 131/70 (90) 96 Nasal Cannula 3.0 98.1 Intake and Output 02/16/19 06:59 Intake Total 658 ml Output Total 200 ml Balance 458 ml Intake Oral 650 ml IV Total 8 ml Output Urine Total 200 ml PHYSICAL EXAM Alert. Oriented to time, place and person. PERRL. EOMI. CN: Right ptosis Muscle tone: normal. Muscle strength: 4+/5 left hemiparesis DTR: 2+ Plantar reflex: flexor Gait: not examined in bed. Sensory exam: patchy loss left face, arm, leg, improved. No cerebellar signs elicited. Review of Relevant I have reviewed the following items julian (where applicable) has been applied. Labs Laboratory Tests Test 02/14/19 17:13 02/14/19 23:52 02/15/19 04:10 02/15/19 05:55 Glucose (Fingerstick) 210 mg/dL (70-99) 185 mg/dL (70-99) 173 mg/dL (70-99) White Blood Count 8.9 x10^3/uL (4.0-11.0) Red Blood Count 4.09 x10^6/uL (4.30-5.70) Hemoglobin 13.7 g/dL (13.0-17.5) Hematocrit 40.3 % (39.0-53.0) Mean Corpuscular Volume 99 fL (79-100) Mean Corpuscular Hemoglobin 34 pg (25-35) Mean Corpuscular Hemoglobin Concent 34 g/dL (31-37) Red Cell Distribution Width 13.6 % (11.5-14.5) Platelet Count 211 x10^3/uL (140-400) Sodium Level 143 mmol/L (136-145) Potassium Level 3.9 mmol/L (3.5-5.1) Chloride Level 105 mmol/L (98-107) Carbon Dioxide Level 26 mmol/L (21-32) Anion Gap 12 (6-14) Blood Urea Nitrogen 20 mg/dL (8-26) Creatinine 1.0 mg/dL (0.7-1.3) Estimated GFR (Cockcroft-Gault) 76.0 Glucose Level 207 mg/dL (70-99) Hemoglobin A1c 7.9 % (4.8-5.6) Calcium Level 8.7 mg/dL (8.5-10.1) Triglycerides Level 195 mg/dL (0-150) Cholesterol Level 140 mg/dL (0-200) LDL Cholesterol, Calculated 74 mg/dL (0-100) VLDL Cholesterol, Calculated 39 mg/dL (0-40) Non-HDL Cholesterol Calculated 113 mg/dL (0-129) HDL Cholesterol 27 mg/dL (40-60) Cholesterol/HDL Ratio 5.2 Test 02/15/19 11:51 02/15/19 17:04 02/15/19 20:16 02/16/19 07:53 Glucose (Fingerstick) 198 mg/dL (70-99) 210 mg/dL (70-99) 207 mg/dL (70-99) 175 mg/dL (70-99) Test 02/16/19 10:43 Glucose (Fingerstick) 240 mg/dL (70-99) Laboratory Tests Test 02/15/19 17:04 02/15/19 20:16 02/16/19 07:53 02/16/19 10:43 Glucose (Fingerstick) 210 mg/dL (70-99) 207 mg/dL (70-99) 175 mg/dL (70-99) 240 mg/dL (70-99) Medications Current Medications Nicardipine HCl 50 mg/Sodium Chloride 250 ml @ 25 mls/hr CONT PRN IV SEE I/O RECORD Last administered on 02/14/19at 16:05; Start 02/14/19 at 03:45 Info (Review Meds) 1 ea PRN 1X PRN MC SEE COMMENTS; Start 02/15/19 at 09:15 Sodium Chloride (Normal Saline Flush) 3 ml QSHIFT PRN IV AFTER MEDS AND BLOOD DRAWS; Start 02/15/19 at 09:15 Acetaminophen (Tylenol Supp) 650 mg PRN Q6HRS PRN [place] FEVER > 100.5'F; Start 02/15/19 at 09:15 Labetalol HCl (Normodyne Iv Push) 10 mg PRN Q10MIN PRN IVP HYPERTENSION; Start 02/15/19 at 09:15 Hydralazine HCl (Apresoline Inj) 10 mg PRN Q10MIN PRN IVP HYPERTENSION Last administered on 02/15/19at 11:26; Start 02/15/19 at 09:15 Nicardipine HCl 50 mg/Sodium Chloride 250 ml @ 25 mls/hr CONT PRN IV HYPERTENSION; Start 02/15/19 at 09:15; Status UNV Ondansetron HCl (Zofran) 4 mg PRN Q6HRS PRN IV NAUSEA/VOMITING; Start 02/15/19 at 09:15 Iohexol (Omnipaque 300 Mg/ml) 75 ml 1X ONCE IV Last administered on 02/15/19at 09:30; Start 02/15/19 at 09:30; Stop 02/15/19 at 09:31; Status DC Allopurinol (Zyloprim) 300 mg HS PO Last administered on 02/15/19 22:26; Start 02/15/19 at 21:00 Atorvastatin Calcium (Lipitor) 40 mg QHS PO Last administered on 02/15/19at 22:23; Start 02/15/19 at 21:00 Losartan Potassium (Cozaar) 25 mg HS PO Last administered on 02/15/19at 22:25; Start 02/15/19 at 21:00 Vitamin D (Vitamin D3) 1,000 unit QHS PO Last administered on 02/15/19 22:28; Start 02/15/19 at 21:00 Doxazosin Mesylate (Cardura) 1 mg QHS PO Last administered on 02/15/19 22:25; Start 02/15/19 at 21:00 Metformin HCl (Glucophage Xr) 2,000 mg QHS PO Last administered on 02/15/19 22:27; Start 02/15/19 at 21:00 Insulin Human Lispro (HumaLOG) 0-9 UNITS TIDWMEALS SQ Last administered on 10/29/19at 12:00; Start 02/16/19 at 08:00 Dextrose (Dextrose 50%-Water Syringe) 12.5 gm PRN Q15MIN PRN IV SEE COMMENTS; Start 02/15/19 at 20:15 Active Scripts Active Reported Metformin Hcl 1,000 Mg Tablet 2,000 Mg PO HS Trulicity (Dulaglutide) 0.75 Mg/0.5 Ml Pen.injctr 0.75 Mg SQ HS Levemir (Insulin Detemir) 100 Unit/1 Ml Vial 90 Unit SQ HS Novolin 70-30 Flexpen (Insulin NPH Hum/Reg Insulin Hm) 100 Unit/1 Ml Insuln.pen 38 Unit SQ TIDWMEALS Losartan Potassium (Losartan Potassium) 25 Mg Tablet 25 Mg PO HS Vitamin D (Cholecalciferol (Vitamin D3)) 1,000 Unit Capsule 1 Cap PO HS 30 Days Atorvastatin Calcium 40 Mg Tablet 1 Tab PO QHS Allopurinol 300 Mg Tablet 1 Tab PO HS Allopurinol 100 Mg Tablet 1 Tab PO HS Doxazosin Mesylate 2 Mg Tablet 0.5 Tab PO HS Colcrys (Colchicine) 0.6 Mg Tablet 1 Tab PO HS 30 Days Vitals/I & O Vital Sign - Last 24 Hours 02/15/19 02/15/19 02/15/19 02/15/19 13:56 15:01 16:05 16:55 Temp 98.2 97.8 98.2 97.8 Pulse 99 86 88 Resp 30 22 B/P (MAP) 140/90 (107) 150/85 (106) 152/82 (105) Pulse Ox 96 99 O2 Delivery Room Air Nasal Cannula O2 Flow Rate 3.0 3.0 02/15/19 02/15/19 02/15/19 02/15/19 19:20 20:00 22:25 22:25 Temp 97.5 97.5 Pulse 90 90 90 Resp 18 B/P (MAP) 140/80 (100) 140/80 140/80 Pulse Ox 93 O2 Delivery Nasal Cannula Nasal Cannula O2 Flow Rate 3.0 3.0 02/15/19 02/16/19 02/16/19 02/16/19 23:48 03:48 07:00 08:00 Temp 97.8 97.9 97.8 97.8 97.9 97.8 Pulse 94 94 85 Resp 18 20 20 B/P (MAP) 127/68 (87) 136/73 (94) 132/77 (95) Pulse Ox 93 94 94 O2 Delivery Nasal Cannula Nasal Cannula Nasal Cannula Nasal Cannula O2 Flow Rate 3.0 3.0 3.0 3.0 02/16/19 11:38 Temp 98.1 98.1 Pulse 88 Resp 18 B/P (MAP) 131/70 (90) Pulse Ox 96 O2 Delivery Nasal Cannula O2 Flow Rate 3.0 Intake and Output 02/15/19 02/15/19 02/16/19 14:59 22:59 06:59 Intake Total 8 ml 250 ml 400 ml Output Total 200 ml Balance 8 ml 250 ml 200 ml Images MRI Brain without contrast History: Right thalamic hemorrhage Technique: Multiplanar, multisequential noncontrast MR imaging was performed of the brain. Comparison: 02/14/[address] exam Findings: As seen on CT, there is signal abnormality of parenchymal hemorrhage centered in the right thalamus about 2.2 cm AP by 1.9 cm transverse by about 2 cm CC. This is variably hyperintense on T1 sequence and centrally hyperintense on the T2 sequence, peripheral T2 hypointense signal. There is associated decreased signal on the gradient echo sequence. There is adjacent moderate vasogenic edema signified by T2 and FLAIR hyperintense signal. There is also intraventricular hemorrhage greater in the right lateral ventricle, also dependently in the occipital horns bilaterally. Septum pellucidum is near the midline. No other separate focus of parenchymal hemorrhage is identified. Cerebellar tonsils are normal in location. There is very minimal T2 and FLAIR hyperintense signal of the periventricular white matter bilaterally, also minimal T2 and FLAIR hyperintense abnormality of the bifrontal deep white matter. Ventricles are not significantly dilated. There is mild diffusion signal abnormality at the periphery of the right thalamic hematoma, no separate focus of restricted diffusion. There has been lens surgery bilaterally. There is very mild right maxillary sinus mucosal thickening. There is preservation of the major arterial flow voids at the skull base. There is mild fluid and thickening of the right mastoid air cells. There is nonspecific heterogeneity of the marrow of the nonexpanded clivus. Impression: 1. There is again acute/early subacute right thalamic parenchymal hematoma with adjacent vasogenic edema, also intraventricular hemorrhage. 2. Other very mild T2 and FLAIR hyperintense signal of the supratentorial parenchyma is probably due to chronic 2 chronic microvascular ischemic disease. CTA head and neck History: Right thalamic hemorrhage Technique: After bolus of intravenous contrast, volumetric CT data acquisition was acquired of the head and neck. Multiplanar reconstruction images to include MIP and 3-D reconstruction images are submitted. Exposure: One or more of the following individualized dose reduction techniques were utilized for this examination: 1. Automated exposure control 2. Adjustment of the mA and/or kV according to patient size 3. Use of iterative reconstruction technique. Comparison: Noncontrast head CT 02/14/2019 Any determination of stenosis is based on NASCET criteria. CTA head: Findings: Exam is of very limited quality due to the poor contrast bolus in the arteries, grossly visualized internal carotid arteries as well as basilar and intradural vertebral arteries. There is also venous contamination. Exam does not accurately evaluate for aneurysm or stenosis. No obvious increased vascularity is seen near the right thalamic parenchymal hemorrhage. Impression: 1. Exam is very limited as stated, essentially nondiagnostic. Attempt at repeat exam should be considered. Neck CTA: Findings: Exam is limited due to motion as well as poor contrast bolus in the arteries, also venous contamination. There is visualization of segments of the common carotid arteries as well as cervical internal carotid arteries bilaterally although cannot accurately evaluate for dissection flap or stenosis. There is visualization of segments of the vertebral arteries bilaterally. There is degenerative disc disease greatest at C5-6 and C6-7. There is multilevel cervical facet degenerative change. Impression: 1. Exam is very limited stated, cannot accurately evaluate for stenosis or dissection flap on this exam, gross visualization of the cervical arterial vasculature. Echocardiogram: LEFT VENTRICLE The left ventricle is normal size. There is mild to moderate concentric left ventricular hypertrophy. The left ventricular systolic function is normal. The Ejection Fraction is 60-65%. There is normal LV segmental wall motion. Transmitral Doppler flow pattern is Grade II-pseudonormal filling dynamics. RIGHT VENTRICLE The right ventricle is normal size. There is normal right ventricular wall thickness. Right ventricular function cannot be assessed due to poor image quality. ATRIA The left atrium size is normal. The right atrium size is normal. The interatrial septum is intact with no evidence for an atrial septal defect or patent foramen ovale as noted on 2-D or Doppler imaging. Injection of bubbles is not conclusive due to poor image quality. AORTIC VALVE The aortic valve is normal in structure and function. The aortic valve is mildly thickened. Doppler and Color Flow revealed trace aortic regurgitation. There is no significant aortic valvular stenosis. MITRAL VALVE The mitral valve is normal in structure and function. There is no evidence of mitral valve prolapse. There is no mitral valve stenosis. Doppler and Color Flow revealed no mitral valve regurgitation noted. TRICUSPID VALVE The tricuspid valve is not well visualized. Doppler and Color Flow revealed no tricuspid valve regurgitation noted. There is no tricuspid valve prolapse or vegetation. PULMONIC VALVE The pulmonic valve is not well visualized. GREAT VESSELS The aortic root is mildly enlarged. The ascending aorta is Mildly dilated at 4.0cm. The IVC is normal in size and collapses >50% with inspiration. PERICARDIAL EFFUSION There is no evidence of significant pericardial effusion. Critical Notification Critical Value: No <Conclusion> The left ventricular systolic function is normal. The Ejection Fraction is 60-65%. There is normal LV segmental wall motion. Doppler and Color Flow revealed trace aortic regurgitation. There is no evidence of significant pericardial effusion. The ascending aorta is Mildly dilated at 4.0cm. Injection of bubbles is not conclusive due to poor image quality. Recommend PAPA for definitive evaluation if clinical suspicion is high. EUGENE JAIN MD Feb 16, 2019 12:52
--- NOTE | 2019-02-16 13:11 | PN ---
DATE: 02/16/2019 SUBJECTIVE: The patient is sitting in his recliner comfortably, in no apparent distress. He denied any complaint. He was evaluated by the physical therapist and the recommendation is for him to go to an inpatient rehab, like [facility] or [facility]. PHYSICAL EXAMINATION: GENERAL: When I saw him this morning, he looked well and was clearly in no apparent respiratory distress. No pallor, jaundice, cyanosis or thyromegaly. No jugular venous distention. No lower limb edema. VITAL SIGNS: His heart rate was 85, blood pressure was 132/77, temperature was 97.8, respiratory rate was 20 and oxygen saturation was 94% on 3 liters by nasal cannula. The rest of the examination was stable. He continued to have left-sided hemiparesis. His intake was 700, output was 1300. LABORATORY DATA: As of yesterday, his white cell count was 8900, hemoglobin 13.7, hematocrit 40, MCV 99 and platelet count 211,000. Blood sugar seems to be reasonably controlled. His serum sodium was 143, potassium 3.9, chloride 105, bicarbonate 26, anion gap 12, BUN 20, creatinine 1, estimated GFR was 76 mL per minute and his glucose was 207. Hemoglobin A1c was 7.9. Calcium was 8.7. Serum triglycerides was 195, total cholesterol 140, LDL was 74, VLDL was 39, HDL cholesterol was 27 and ratio 5.2. ASSESSMENT AND PLAN: Hypertensive right thalamic hemorrhage with left-sided hemisensory and motor findings and right ptosis with intraventricular extension seemed to be clinically better. The patient apparently did well and was started on dysphagia 2 with thin regular liquid. The physical therapist recommended the patient be transferred to an inpatient rehab unit for more intense physical therapy. I spoke with our addiction social worker to arrange for him to be transferred to [facility] or [facility]. DEBRA BERMAN MD DR: ALEJANDRO/ivanna JOB#: [id number] / [id number]
[2019-02-16] MEDS ORDERED: INSU100V13 SQ (20:43)
[2019-02-16] MEDS ORDERED: INSU100I17 SQ (20:54)
[2019-02-16] MEDS ORDERED: INSULIN GLARGINE SYRINGE. SQ SCH (21:00)
[2019-02-16] MEDS: ALLOPURINOL 300 MG TABLET. PO SCH (22:02)
[2019-02-16] MEDS: DOXAZOSIN MESYLATE 1 MG TABLET. PO SCH (22:03)
[2019-02-16] MEDS: CHOLECALCIFEROL (VITAMIN D3) 1,000 UNIT TABLET PO SCH (22:03)
[2019-02-16] MEDS: ATORVASTATIN CALCIUM 40 MG TABLET. PO SCH (22:03)
[2019-02-16] MEDS: LOSARTAN POTASSIUM 25 MG TABLET. PO SCH (22:03)
[2019-02-16] MEDS: metFORMIN XR 500 MG TAB.ER.24H PO SCH (22:03)
[2019-02-16] MEDS: [UNRECOGNIZED DRUG - REMARK] SQ SCH (22:07)
[2019-02-17] VITALS (7 sets, daily range): BP systolic 117–163; BP diastolic 69–97
--- NOTE | 2019-02-17 07:32 | NUR ---
Late note input: [id number] Dr. Alejandre gave okay for nurse personnel to use patient's personal insulin pens. Patient educated on schedule regimen for insulin compliance. Patient agitated, stating "he does what he needs to do with his insulin". Patient became angry and stated he would administer his own dose of Novalog this evening. Patient given ordered medication at this time, will continue to monitor.
--- NOTE | 2019-02-17 07:46 | NUR ---
Late note input: 0030 Patient called for assistance from bedside commode, back to chair. 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 This nurse, with help of three other healthcare staff in room to help transfer patient. Patient able to stand well and pivot, but lost his balance as we were guiding him to a sitting position onto chair. Personnel, assisted patient to floor. No injuries or complaints from patient at this time. Lift used to help place patient in bed at this time. Nursing supervisor feed mill notified. Will continue to monitor.
[2019-02-17] MEDS: INSULIN LISPRO 300 UNITS/3 ML VIAL. SQ SCH ×3 (08:00→17:00)
[2019-02-17] MEDS ORDERED: INSULIN NPH/REG INSULIN 70/30 300 UNITS/3 ML INSULN.PEN. SQ SCH (08:00)
[2019-02-17] MEDS: [UNRECOGNIZED DRUG - REMARK] SQ SCH ×3 (08:00→17:00)
[2019-02-17] MEDS ORDERED: IOHEXOL 350 MG/ML 100 ML VIAL. IV ONE (08:15)
[2019-02-17] MEDS ORDERED: CONTRAST GIVEN. MC PRN (08:30)
--- NOTE | 2019-02-17 11:52 | PDOC ---
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 There is intraventricular extension. Hyperlipidemia Plan Awaiting repeat CT angiogram and head CT Rehabilitation modalities Does not need transesophageal echocardiogram Resume statin Neurosurgery is following Treat sleep apnea as outpatient Tighter control of the diabetes, good control of blood pressure Patient requests transfer to [place] inpatient rehab if it is necessary. Aim for discharge as soon as later today after repeat CT studies are completed Follow-up with neurology as needed Subjective Feels he continues to improve. Objective Vital Signs Date Time Temp Pulse Resp B/P (MAP) Pulse Ox O2 Delivery O2 Flow Rate FiO2 02/17/19 08:00 Nasal Cannula 3.0 02/17/19 07:00 97.4 98 22 117/81 (93) 96 97.4 Intake and Output 02/17/19 07:00 Intake Total 0 ml Output Total 100 ml Balance -100 ml Intake Oral 0 ml Output Urine Total 100 ml PHYSICAL EXAM Alert. Oriented to time, place and person. PERRL. EOMI. CN: Right ptosis Muscle tone: normal. Muscle strength: 4+/5 left hemiparesis DTR: 2+ Plantar reflex: flexor Gait: not examined in bed. Sensory exam: patchy loss left face, arm, leg, improved. No cerebellar signs elicited. Review of Relevant I have reviewed the following items julian (where applicable) has been applied. Labs Laboratory Tests Test 02/15/19 17:04 02/15/19 20:16 02/16/19 07:53 02/16/19 10:43 Glucose (Fingerstick) 210 mg/dL (70-99) 207 mg/dL (70-99) 175 mg/dL (70-99) 240 mg/dL (70-99) Test 02/16/19 16:04 02/16/19 21:59 02/17/19 08:05 02/17/19 11:12 Glucose (Fingerstick) 274 mg/dL (70-99) 169 mg/dL (70-99) 70 mg/dL (70-99) 105 mg/dL (70-99) Laboratory Tests Test 02/16/19 16:04 02/16/19 21:59 02/17/19 08:05 02/17/19 11:12 Glucose (Fingerstick) 274 mg/dL (70-99) 169 mg/dL (70-99) 70 mg/dL (70-99) 105 mg/dL (70-99) Medications Current Medications Nicardipine HCl 50 mg/Sodium Chloride 250 ml @ 25 mls/hr CONT PRN IV SEE I/O RECORD Last administered on 02/14/19at 16:05; Start 02/14/19 at 03:45; Stop 02/16/19 at 15:06; Status DC Info (Review Meds) 1 ea PRN 1X PRN MC SEE COMMENTS; Start 02/15/19 at 09:15 Sodium Chloride (Normal Saline Flush) 3 ml QSHIFT PRN IV AFTER MEDS AND BLOOD DRAWS; Start 02/15/19 at 09:15 Acetaminophen (Tylenol Supp) 650 mg PRN Q6HRS PRN [place] FEVER > 100.5'F; Start 02/15/19 at 09:15 Labetalol HCl (Normodyne Iv Push) 10 mg PRN Q10MIN PRN IVP HYPERTENSION; Start 02/15/19 at 09:15 Hydralazine HCl (Apresoline Inj) 10 mg PRN Q10MIN PRN IVP HYPERTENSION Last administered on 02/15/19at 11:26; Start 02/15/19 at 09:15 Nicardipine HCl 50 mg/Sodium Chloride 250 ml @ 25 mls/hr CONT PRN IV HYPERTENSION; Start 02/15/19 at 09:15; Status UNV Ondansetron HCl (Zofran) 4 mg PRN Q6HRS PRN IV NAUSEA/VOMITING; Start 02/15/19 at 09:15 Iohexol (Omnipaque 300 Mg/ml) 75 ml 1X ONCE IV Last administered on 02/15/19at 09:30; Start 02/15/19 at 09:30; Stop 02/15/19 at 09:31; Status DC Allopurinol (Zyloprim) 300 mg HS PO Last administered on 02/16/19at 22:02; Start 02/15/19 at 21:00 Atorvastatin Calcium (Lipitor) 40 mg QHS PO Last administered on 02/16/19at 22:03; Start 02/15/19 at 21:00 Losartan Potassium (Cozaar) 25 mg HS PO Last administered on 02/16/19at 22:03; Start 02/15/19 at 21:00 Vitamin D (Vitamin D3) 1,000 unit QHS PO Last administered on 02/16/19at 22:03; Start 02/15/19 at 21:00 Doxazosin Mesylate (Cardura) 1 mg QHS PO Last administered on 02/16/19at 22:03; Start 02/15/19 at 21:00 Metformin HCl (Glucophage Xr) 2,000 mg QHS PO Last administered on 02/16/19at 22:03; Start 02/15/19 at 21:00; Stop 02/17/19 at 08:14; Status DC Insulin Human Lispro (HumaLOG) 0-9 UNITS TIDWMEALS SQ Last administered on 02/16/19at 17:20; Start 02/16/19 at 08:00 Dextrose (Dextrose 50%-Water Syringe) 12.5 gm PRN Q15MIN PRN IV SEE COMMENTS; Start 02/15/19 at 20:15 Insulin Human Isoph/Insulin Regular (HumuLIN 70/30) 38 units TIDWMEALS SQ ; Start 02/17/19 at 08:00; Status UNV Insulin Glargine (Lantus Syringe) 90 unit QHS SQ ; Start 02/16/19 at 21:00; Status Cancel Non-Formulary Medication (Insulin Aspart (Novolog Flexpen)) 38 unit TIDWMEALS SQ ; Start 02/17/19 at 08:00 Non-Formulary Medication 90 ea QHS SQ Last administered on 02/16/19at 22:07; Start 02/16/19 at 21:00 Iohexol (Omnipaque 350 Mg/ml) 75 ml 1X ONCE IV Last administered on 02/17/19at 09:25; Start 02/17/19 at 08:15; Stop 02/17/19 at 08:16; Status DC Metformin HCl (Glucophage Xr) 2,000 mg QHS PO ; Start 02/19/19 at 21:00 Info (CONTRAST GIVEN -- Rx MONITORING) 1 each PRN DAILY PRN MC SEE COMMENTS; Start 02/17/19 at 08:30; Stop 02/19/19 at 08:29 Active Scripts Active Reported Novolog Flexpen (Insulin Aspart) 100 Unit/1 Ml Insuln.pen 38 Unit SQ TIDWMEALS Levemir (Insulin Detemir) 100 Unit/1 Ml Vial 90 Unit SQ HS Metformin Hcl 1,000 Mg Tablet 2,000 Mg PO HS Trulicity (Dulaglutide) 0.75 Mg/0.5 Ml Pen.injctr 0.75 Mg SQ HS Levemir (Insulin Detemir) 100 Unit/1 Ml Vial 90 Unit SQ HS Losartan Potassium (Losartan Potassium) 25 Mg Tablet 25 Mg PO HS Vitamin D (Cholecalciferol (Vitamin D3)) 1,000 Unit Capsule 1 Cap PO HS 30 Days Atorvastatin Calcium 40 Mg Tablet 1 Tab PO QHS Allopurinol 300 Mg Tablet 1 Tab PO HS Allopurinol 100 Mg Tablet 1 Tab PO HS Doxazosin Mesylate 2 Mg Tablet 0.5 Tab PO HS Colcrys (Colchicine) 0.6 Mg Tablet 1 Tab PO HS 30 Days Vitals/I & O Vital Sign - Last 24 Hours 02/16/19 02/16/19 02/16/19 02/16/19 15:00 19:35 20:10 20:20 Temp 98.4 98.0 98.4 98.0 Pulse 92 86 81 Resp 18 18 B/P (MAP) 130/74 (92) 158/104 (122) 139/78 (98) Pulse Ox 98 98 O2 Delivery Nasal Cannula Room Air Room Air O2 Flow Rate 3.0 02/16/19 02/16/19 02/16/19 02/17/19 22:03 22:03 23:35 03:35 Temp 98.0 97.5 98.0 97.5 Pulse 81 81 88 96 Resp 18 17 B/P (MAP) 139/78 139/78 163/96 (118) 149/70 (96) Pulse Ox 92 95 O2 Delivery Room Air Room Air 02/17/19 02/17/19 07:00 08:00 Temp 97.4 97.4 Pulse 98 Resp 22 B/P (MAP) 117/81 (93) Pulse Ox 96 O2 Delivery Room Air Nasal Cannula O2 Flow Rate 3.0 Intake and Output 02/16/19 02/16/19 02/17/19 15:00 23:00 07:00 Intake Total 0 ml Output Total 100 ml Balance -100 ml 0 ml EUGENE JAIN MD Feb 17, 2019 11:52
--- NOTE | 2019-02-17 12:00 | NUR ---
SW following pt. Spoke with [facility] and they are not able to meet pt's needs and reported pt will need to go to acute rehab. Discussed with Pt and explained difference between acute rehab and SNF. Pt chose [facility] rehab. Referral faxed, pt acceptance pending. SW will continue to follow.
--- NOTE | 2019-02-17 14:30 | NUR ---
BARRY following pt. Pt has been accepted at [facility] pending insurance authCarisa Flores reported they will submit for auth. Will continue to follow.
--- NOTE | 2019-02-17 14:33 | RAD ---
CT ANGIOGRAPHY HEAD History: Right thalamic hemorrhage. Nondiagnostic study on February 15, 2019 Technique: After bolus of intravenous contrast, volumetric CT data acquisition was acquired of the head. Multiplanar reconstruction images to include MIP and 3-D reconstruction images are submitted. Exposure: One or more of the following individualized dose reduction techniques were utilized for this examination: 1. Automated exposure control 2. Adjustment of the mA and/or kV according to patient size 3. Use of iterative reconstruction technique. Comparison: None. Any determination of stenosis is based on NASCET criteria. Head CTA: ICA: No stenosis, occlusion or aneurysm. MCA: No stenosis, occlusion or aneurysm. FATMATA: 3 mm inferior projecting anterior to indicating artery aneurysm. No arterial stenosis or occlusion. PUBLIC SPEAKING PROFESSOR: No stenosis, occlusion or aneurysm. Basilar artery: No stenosis, occlusion or aneurysm. Distal vertebral arteries: No stenosis, occlusion or aneurysm. Right thalamic parenchymal hemorrhage. No evidence of vascular malformation, aneurysm or active contrast extravasation. Small intra-articular hemorrhage. Findings better characterized on concurrently performed noncontrast head CT. Impression: 1. Right thalamic hemorrhage with intraventricular extension. No evidence of underlying vascular malformation, aneurysm or contrast extravasation. 2. 3 mm anterior communicating artery aneurysm. Electronically signed by: Elie Jaimes DO (02/17/2019 2:30 PM) [facility]
--- NOTE | 2019-02-17 14:33 | RAD ---
CT HEAD WO CONTRAST History: Follow up right thalamic hemorrhage Comparison: February 14, 2019 Technique: Noncontrast CT imaging was performed of the head. Exposure: One or more of the following individualized dose reduction techniques were utilized for this examination: 1. Automated exposure control 2. Adjustment of the mA and/or kV according to patient size 3. Use of iterative reconstruction technique. Findings: Right thalamic hematoma with adjacent edema measures 2.0 x 2.4 cm. Intraventricular extension, mildly increased compared to prior. Unchanged lateral ventricular and third ventricular size. Imaged orbits are unremarkable. Mild right maxillary sinus mucosal thickening. Mastoid air cells are clear. Impression: 1. Evolving right thalamic hematoma with adjacent edema and slightly increased intraventricular extension. Electronically signed by: Elie Jaimes DO (02/17/2019 2:31 PM) [facility]
[2019-02-17] MEDS: [UNRECOGNIZED DRUG - REMARK] SQ SCH (21:00)
[2019-02-17] MEDS: ATORVASTATIN CALCIUM 40 MG TABLET. PO SCH (22:19)
[2019-02-17] MEDS: ALLOPURINOL 300 MG TABLET. PO SCH (22:20)
[2019-02-17] MEDS: CHOLECALCIFEROL (VITAMIN D3) 1,000 UNIT TABLET PO SCH (22:21)
[2019-02-17] MEDS: DOXAZOSIN MESYLATE 1 MG TABLET. PO SCH (22:21)
[2019-02-17] MEDS: LOSARTAN POTASSIUM 25 MG TABLET. PO SCH (22:23)
--- NOTE | 2019-02-17 23:46 | PN ---
DATE: 02/17/2019 SUBJECTIVE: The patient is resting, slightly propped up in bed, in no apparent distress, awake, alert, continued to have some left side weakness, although he claims that he gained some strength. He apparently has had CT angiogram and head CT this morning, the results are still pending at the time of this dictation. PHYSICAL EXAMINATION: GENERAL: When I saw him this afternoon, he looked well and was clearly in no apparent respiratory distress. No pallor, jaundice, cyanosis, or thyromegaly. No jugular venous distention. No limb edema. VITAL SIGNS: His heart rate was 98, blood pressure was 117/81, temperature was 97.4, respiratory rate was 22 and oxygen saturation was 96%. The rest of clinical exam is stable. ASSESSMENT: 1. 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 2. Dysphagia for which he was started on Dysphagia 2 with regular liquid. He was seen by the physical therapist who recommended transfer to inpatient rehab unit for more intensive physical therapy. Arrangement has been made for him to go to either [facility] and/or the [facility]. DEBRA BERMAN MD DR: ALEJANDRO/ivanna JOB#: [id number] / [id number]
[2019-02-18 03:54] VITALS: BP 123/77
[2019-02-18 07:53] VITALS: BP 142/75
[2019-02-18] MEDS: [UNRECOGNIZED DRUG - REMARK] SQ SCH ×3 (08:00→17:00)
[2019-02-18] MEDS: INSULIN LISPRO 300 UNITS/3 ML VIAL. SQ SCH ×3 (09:52→17:00)
--- NOTE | 2019-02-18 10:28 | SNU/HH DC ---
DISCHARGE ORDERS DISCHARGE INFORMATION: DISCHARGE DATE: Feb 18, 2019 FINAL DIAGNOSIS right sided intra-cerebral hemorrhage left sided hemiplegia HTN HLD DM ANDREZ CONDITION ON DISCHARGE: Stable CODE STATUS: Code Status: Full [facility]: SNF STAY <30 DAYS: Yes POST DISCHARGE ORDERS: ACTIVITY ORDERS: Activity as tolerated DIET AFTER DISCHARGE: ADA TREATMENT/EQUIPMENT ORDERS: Physical Therapy For: Evalulation/Treatment Occupational Therapy For: Evaluation/Treatment DISCHARGE MEDICATIONS: Home Meds Reported Medications Insulin Aspart (NOVOLOG FLEXPEN) 100 Unit/1 Ml Insuln.pen, 38 UNIT SQ TIDWMEALS for diabetes, SYR 02/16/19 Insulin Detemir (LEVEMIR) 100 Unit/1 Ml Vial, 90 UNIT SQ HS for Diabetes, VIAL 02/16/19 Metformin Hcl (METFORMIN HCL) 1,000 Mg Tablet, 2000 MG PO HS for Diabetes, TAB 0 Refills 02/14/19 Dulaglutide (Trulicity) 0.75 Mg/0.5 Ml Pen.injctr, 0.75 MG SQ HS for diabetes, EACH 02/14/19 Insulin Detemir (LEVEMIR) 100 Unit/1 Ml Vial, 90 UNIT SQ HS for Diabetes, VIAL 02/14/19 Losartan Potassium (LOSARTAN POTASSIUM ) 25 Mg Tablet, 25 MG PO HS for HYPERTENSION, TAB 02/14/19 Cholecalciferol (Vitamin D3) (VITAMIN D) 1,000 Unit Capsule, 1 CAP PO HS for vitamin for 30 Days, #30 CAP 0 Refills 02/14/19 Atorvastatin Calcium (ATORVASTATIN CALCIUM) 40 Mg Tablet, 1 TAB PO QHS for high cholesterol, #90 TAB 3 Refills 02/14/19 Allopurinol (ALLOPURINOL) 300 Mg Tablet, 1 TAB PO HS for gout, #30 TAB 5 Refills 02/14/19 Allopurinol (ALLOPURINOL) 100 Mg Tablet, 1 TAB PO HS for gout, #30 TAB 5 Refills 02/14/19 Doxazosin Mesylate (DOXAZOSIN MESYLATE) 2 Mg Tablet, 0.5 TAB PO HS for bp, #30 TAB 5 Refills 02/14/19 Colchicine (COLCRYS) 0.6 Mg Tablet, 1 TAB PO HS for gout pain for 30 Days, #30 TAB 0 Refills 02/14/19 Discontinued Reported Medications Insulin NPH Hum/Reg Insulin Hm (Novolin 70-30 Flexpen) 100 Unit/1 Ml Insuln.pen, 38 UNIT SQ TIDWMEALS for diabetes, EACH 02/14/19 DEBRA BERMAN MD Feb 18, 2019 10:28
--- NOTE | 2019-02-18 10:49 | PDOC ---
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 There is intraventricular extension. Hyperlipidemia 3 mm anterior communicating artery aneurysm, this is an incidental finding, would not explain the hemorrhage Plan Rehabilitation modalities Neurosurgery is following Treat sleep apnea as outpatient Tighter control of the diabetes, good control of blood pressure Patient requests transfer to [facility] inpatient rehab if it is necessary. Discharge anytime Followup head CT in 1 week Follow-up with neurology as needed Follow-up with Dr. Edwards or neurosurgery regarding the incidental aneurysm, which does not need immediate surgery at this time I left a message with the patient's . Subjective He denies headache Objective Vital Signs Date Time Temp Pulse Resp B/P (MAP) Pulse Ox O2 Delivery O2 Flow Rate FiO2 02/18/19 07:53 98.6 77 20 142/75 (97) 90 Room Air 98.6 02/17/19 20:00 3.0 Intake and Output 02/18/19 07:00 Intake Total 680 ml Balance 680 ml Intake Oral 680 ml # Voids 2 # Bowel Movements 8 PHYSICAL EXAM Sleepy, alerts easily. Oriented to time, place and person. PERRL. EOMI. CN: Right ptosis Muscle tone: normal. Muscle strength: 4+/5 left hemiparesis DTR: 2+ Plantar reflex: flexor Gait: not examined in bed. Sensory exam: patchy loss left face, arm, leg, improved. No cerebellar signs elicited. Review of Relevant I have reviewed the following items julian (where applicable) has been applied. Labs Laboratory Tests Test 02/16/19 16:04 02/16/19 21:59 02/17/19 08:05 02/17/19 11:12 Glucose (Fingerstick) 274 mg/dL (70-99) 169 mg/dL (70-99) 70 mg/dL (70-99) 105 mg/dL (70-99) Test 02/17/19 14:19 02/17/19 16:40 02/17/19 20:19 02/18/19 07:41 Glucose (Fingerstick) 126 mg/dL (70-99) 121 mg/dL (70-99) 142 mg/dL (70-99) 178 mg/dL (70-99) Laboratory Tests Test 02/17/19 11:12 02/17/19 14:19 02/17/19 16:40 02/17/19 20:19 Glucose (Fingerstick) 105 mg/dL (70-99) 126 mg/dL (70-99) 121 mg/dL (70-99) 142 mg/dL (70-99) Test 02/18/19 07:41 Glucose (Fingerstick) 178 mg/dL (70-99) Medications Current Medications Nicardipine HCl 50 mg/Sodium Chloride 250 ml @ 25 mls/hr CONT PRN IV SEE I/O RECORD Last administered on 02/14/19at 16:05; Start 02/14/19 at 03:45; Stop 02/16/19 at 15:06; Status DC Info (Review Meds) 1 ea PRN 1X PRN MC SEE COMMENTS; Start 02/15/19 at 09:15 Sodium Chloride (Normal Saline Flush) 3 ml QSHIFT PRN IV AFTER MEDS AND BLOOD DRAWS; Start 02/15/19 at 09:15 Acetaminophen (Tylenol Supp) 650 mg PRN Q6HRS PRN ME FEVER > 100.5'F; Start 02/15/19 at 09:15 Labetalol HCl (Normodyne Iv Push) 10 mg PRN Q10MIN PRN IVP HYPERTENSION, SEE COMMENTS; Start 02/15/19 at 09:15 Hydralazine HCl (Apresoline Inj) 10 mg PRN Q10MIN PRN IVP HYPERTENSION, SEE COMMENTS Last administered on 02/15/19at 11:26; Start 02/15/19 at 09:15 Nicardipine HCl 50 mg/Sodium Chloride 250 ml @ 25 mls/hr CONT PRN IV HYPERTENSION; Start 02/15/19 at 09:15; Status UNV Ondansetron HCl (Zofran) 4 mg PRN Q6HRS PRN IV NAUSEA/VOMITING; Start 02/15/19 at 09:15 Iohexol (Omnipaque 300 Mg/ml) 75 ml 1X ONCE IV Last administered on 02/15/19at 09:30; Start 02/15/19 at 09:30; Stop 02/15/19 at 09:31; Status DC Allopurinol (Zyloprim) 300 mg HS PO Last administered on 02/17/19at 22:20; Start 02/15/19 at 21:00 Atorvastatin Calcium (Lipitor) 40 mg QHS PO Last administered on 02/17/19 22:19; Start 02/15/19 at 21:00 Losartan Potassium (Cozaar) 25 mg HS PO Last administered on 02/17/19 22:23; Start 02/15/19 at 21:00 Vitamin D (Vitamin D3) 1,000 unit QHS PO Last administered on 02/17/19 22:21; Start 02/15/19 at 21:00 Doxazosin Mesylate (Cardura) 1 mg QHS PO Last administered on 02/17/19 22:21; Start 02/15/19 at 21:00 Metformin HCl (Glucophage Xr) 2,000 mg QHS PO Last administered on 02/16/19 22:03; Start 02/15/19 at 21:00; Stop 02/17/19 at 08:14; Status DC Insulin Human Lispro (HumaLOG) 0-9 UNITS TIDWMEALS SQ Last administered on 02/18/19at 09:52; Start 02/16/19 at 08:00 Dextrose (Dextrose 50%-Water Syringe) 12.5 gm PRN Q15MIN PRN IV SEE COMMENTS; Start 02/15/19 at 20:15 Insulin Human Isoph/Insulin Regular (HumuLIN 70/30) 38 units TIDWMEALS SQ ; Start 02/17/19 at 08:00; Status UNV Insulin Glargine (Lantus Syringe) 90 unit QHS SQ ; Start 02/16/19 at 21:00; Status Cancel Non-Formulary Medication (Insulin Aspart (Novolog Flexpen)) 38 unit TIDWMEALS SQ ; Start 02/17/19 at 08:00 Non-Formulary Medication 90 ea QHS SQ Last administered on 02/16/19at 22:07; Start 02/16/19 at 21:00 Iohexol (Omnipaque 350 Mg/ml) 75 ml 1X ONCE IV Last administered on 02/17/19at 09:25; Start 02/17/19 at 08:15; Stop 02/17/19 at 08:16; Status DC Metformin HCl (Glucophage Xr) 2,000 mg QHS PO ; Start 02/19/19 at 21:00 Info (CONTRAST GIVEN -- Rx MONITORING) 1 each PRN DAILY PRN MC SEE COMMENTS; Start 02/17/19 at 08:30; Stop 02/19/19 at 08:29 Active Scripts Active Reported Novolog Flexpen (Insulin Aspart) 100 Unit/1 Ml Insuln.pen 38 Unit SQ TIDWMEALS Levemir (Insulin Detemir) 100 Unit/1 Ml Vial 90 Unit SQ HS Metformin Hcl 1,000 Mg Tablet 2,000 Mg PO HS Trulicity (Dulaglutide) 0.75 Mg/0.5 Ml Pen.injctr 0.75 Mg SQ HS Levemir (Insulin Detemir) 100 Unit/1 Ml Vial 90 Unit SQ HS Losartan Potassium (Losartan Potassium) 25 Mg Tablet 25 Mg PO HS Vitamin D (Cholecalciferol (Vitamin D3)) 1,000 Unit Capsule 1 Cap PO HS 30 Days Atorvastatin Calcium 40 Mg Tablet 1 Tab PO QHS Allopurinol 300 Mg Tablet 1 Tab PO HS Allopurinol 100 Mg Tablet 1 Tab PO HS Doxazosin Mesylate 2 Mg Tablet 0.5 Tab PO HS Colcrys (Colchicine) 0.6 Mg Tablet 1 Tab PO HS 30 Days Vitals/I & O Vital Sign - Last 24 Hours 02/17/19 02/17/19 02/17/19 02/17/19 11:00 15:00 15:30 19:20 Temp 97.6 98.0 98.0 97.7 97.6 98.0 98.0 97.7 Pulse 84 100 50 77 Resp 24 20 20 20 B/P (MAP) 144/97 (113) 153/94 (113) 127/69 (88) 137/80 (99) Pulse Ox 96 96 97 96 O2 Delivery Room Air Room Air Room Air Room Air 02/17/19 02/17/19 02/17/19 02/17/19 20:00 22:21 22:23 23:05 Temp 97.6 97.6 Pulse 77 92 92 Resp 20 B/P (MAP) 137/80 163/89 163/89 (113) Pulse Ox 92 O2 Delivery Nasal Cannula Room Air O2 Flow Rate 3.0 02/18/19 02/18/19 03:54 07:53 Temp 97.6 98.6 97.6 98.6 Pulse 100 77 Resp 20 20 B/P (MAP) 123/77 (92) 142/75 (97) Pulse Ox 91 90 O2 Delivery Room Air Room Air Intake and Output 02/17/19 02/17/19 02/18/19 15:00 23:00 07:00 Intake Total 0 ml 180 ml 500 ml Balance 0 ml 180 ml [address] ANGIOGRAPHY HEAD History: Right thalamic hemorrhage. Nondiagnostic study on February 15, 2019 Technique: After bolus of intravenous contrast, volumetric CT data acquisition was acquired of the head. Multiplanar reconstruction images to include MIP and 3-D reconstruction images are submitted. Exposure: One or more of the following individualized dose reduction techniques were utilized for this examination: 1. Automated exposure control 2. Adjustment of the mA and/or kV according to patient size 3. Use of iterative reconstruction technique. Comparison: None. Any determination of stenosis is based on NASCET criteria. Head CTA: ICA: No stenosis, occlusion or aneurysm. MCA: No stenosis, occlusion or aneurysm. FATMATA: 3 mm inferior projecting anterior to indicating artery aneurysm. No arterial stenosis or occlusion. 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 Basilar artery: No stenosis, occlusion or aneurysm. Distal vertebral arteries: No stenosis, occlusion or aneurysm. Right thalamic parenchymal hemorrhage. No evidence of vascular malformation, aneurysm or active contrast extravasation. Small intra-articular hemorrhage. Findings better characterized on concurrently performed noncontrast head CT. Impression: 1. Right thalamic hemorrhage with intraventricular extension. No evidence of underlying vascular malformation, aneurysm or contrast extravasation. 2. 3 mm anterior communicating artery aneurysm. CT HEAD WO CONTRAST History: Follow up right thalamic hemorrhage Comparison: February 14, 2019 Technique: Noncontrast CT imaging was performed of the head. Exposure: One or more of the following individualized dose reduction techniques were utilized for this examination: 1. Automated exposure control 2. Adjustment of the mA and/or kV according to patient size 3. Use of iterative reconstruction technique. Findings: Right thalamic hematoma with adjacent edema measures 2.0 x 2.4 cm. Intraventricular extension, mildly increased compared to prior. Unchanged lateral ventricular and third ventricular size. Imaged orbits are unremarkable. Mild right maxillary sinus mucosal thickening. Mastoid air cells are clear. Impression: 1. Evolving right thalamic hematoma with adjacent edema and slightly increased intraventricular extension. EUGENE JAIN MD Feb 18, 2019 10:49
--- NOTE | 2019-02-18 11:35 | NUR ---
BARRY following pt. BARRY phoned and faxed orders to [facility]. [facility] still pending. Discussed with Physician and pt is able to dc once insurance approves. Attempted to speak with pt but he was asleep. Will continue to follow. Addendum: 02/18/19 at 1554 by OCTAVIANO REDDY Discussed with pt that we are awaiting on insurance approval for [facility]. Pt verbalized understanding.
[2019-02-18 11:59] VITALS: BP 125/61
[2019-02-18 15:00] VITALS: BP 152/83
[2019-02-18 19:30] VITALS: BP 142/74
[2019-02-18] MEDS: [UNRECOGNIZED DRUG - REMARK] SQ SCH (21:00)
--- NOTE | 2019-02-18 21:24 | PN ---
DATE: 02/18/2019 SUBJECTIVE: The patient is resting, slightly propped up, sleeping comfortably. On questioning him, he denied any complaint. Nursing staff did not voice any concerns that he has uneventful night. He apparently was accepted at [facility] awaiting the approval by the insurance company. PHYSICAL EXAMINATION: GENERAL: When I examined him, he looked well and was clearly in no apparent respiratory distress. VITAL SIGNS: His heart rate was 77, blood pressure 142/75, temperature was 98.6, respiratory rate 20, and oxygen saturation was 91%. HEAD, EYES, EARS, NOSE AND THROAT: Showed normocephalic, atraumatic. NECK: Supple. HEART: Showed normal first and second heart sounds. No gallop, murmurs. CHEST: Clear to auscultation. No crepitation or rhonchi. ABDOMEN: Distended, soft, nontender. NEUROLOGIC: He is awake, alert, responding appropriately. He has left-sided hemiparesis. His CT scan showed that he has right thalamic hematoma with adjacent edema measuring 2 x 2.4 cm intraventricular extension, mildly increased compared to prior, unchanged lateral ventricle and third ventricle size. Orbits are unremarkable. Mild right maxillary sinus mucosal thickening. Mastoid air cells are clear. ASSESSMENT: The patient has evolving right thalamic hematoma, adjacent edema and slight increased intraventricular extension. CT head, CT angio showed that he has right thalamic hemorrhage with intraventricular extension. No evidence of underlying vascular malformation, aneurysm, contrast extravasation. He has a 3-mm anterior communicating artery aneurysm. PLAN: Obviously, we will discharge the patient. He will continue with physical and occupation therapy. Await insurance authorization for him to be transferred to [facility]. DEBRA BERMAN MD DR: ALEJANDRO/ivanna JOB#: [id number] / [id number]
[2019-02-18] MEDS: CHOLECALCIFEROL (VITAMIN D3) 1,000 UNIT TABLET PO SCH (22:51)
[2019-02-18] MEDS: LOSARTAN POTASSIUM 25 MG TABLET. PO SCH (22:51)
[2019-02-18] MEDS: ALLOPURINOL 300 MG TABLET. PO SCH (22:52)
[2019-02-18] MEDS: DOXAZOSIN MESYLATE 1 MG TABLET. PO SCH (22:52)
[2019-02-18] MEDS: ATORVASTATIN CALCIUM 40 MG TABLET. PO SCH (22:52)
[2019-02-18 23:30] VITALS: BP 158/51
[2019-02-19 03:24] VITALS: BP 134/85
[2019-02-19 07:40] VITALS: BP 145/95
[2019-02-19] MEDS: [UNRECOGNIZED DRUG - REMARK] SQ SCH ×2 (08:00→12:21)
[2019-02-19] MEDS: INSULIN LISPRO 300 UNITS/3 ML VIAL. SQ SCH ×2 (08:48→12:20)
--- NOTE | 2019-02-19 09:57 | NUR ---
BARRY following pt. Insurance has approved SNU. Updates faxed to [facility] and pt will transport via facility arranged stretcher van at 1230. Spoke with Malissa at [facility] and she reported [facility] can reach out to them if pt needs to go to SNU after rehab. BARRY passed this info to Tari at [facility]. Pt, pt's and RN notified. Discussed with Physician and Packet on chart. Pt denies other needs at this time.
[2019-02-19 11:20] VITALS: BP 135/77
--- NOTE | 2019-02-19 12:22 | PDOC ---
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 There is intraventricular extension. Hyperlipidemia 3 mm anterior communicating artery aneurysm, this is an incidental finding, would not explain the hemorrhage Plan Discharge to [facility] inpatient rehab if it is necessary. Followup head CT in 1 week Follow-up with me in 2 months, I'll decide if he needs to get to neurosurgery regarding the incidental aneurysm Objective Vital Signs Date Time Temp Pulse Resp B/P (MAP) Pulse Ox O2 Delivery O2 Flow Rate FiO2 02/19/19 07:40 98.3 93 18 145/95 (112) 94 Room Air 98.3 02/18/19 23:41 3.0 Intake and Output 02/19/19 07:00 Intake Total 600 ml Balance 600 ml Intake Oral 600 ml # Voids 1 # Bowel Movements 1 PHYSICAL EXAM Alert. Oriented to time, place and person. PERRL. EOMI. CN: Right ptosis Muscle tone: normal. Muscle strength: 4+/5 left hemiparesis DTR: 2+ Plantar reflex: flexor Gait: not examined in bed. Sensory exam: patchy loss left face, arm, leg, improved. No cerebellar signs elicited. Review of Relevant I have reviewed the following items julian (where applicable) has been applied. Labs Laboratory Tests Test 02/17/19 14:19 02/17/19 16:40 02/17/19 20:19 02/18/19 07:41 Glucose (Fingerstick) 126 mg/dL (70-99) 121 mg/dL (70-99) 142 mg/dL (70-99) 178 mg/dL (70-99) Test 02/18/19 11:38 02/18/19 17:16 02/18/19 21:16 02/19/19 08:44 Glucose (Fingerstick) 196 mg/dL (70-99) 112 mg/dL (70-99) 148 mg/dL (70-99) 171 mg/dL (70-99) Laboratory Tests Test 02/18/19 17:16 02/18/19 21:16 02/19/19 08:44 Glucose (Fingerstick) 112 mg/dL (70-99) 148 mg/dL (70-99) 171 mg/dL (70-99) Medications Current Medications Nicardipine HCl 50 mg/Sodium Chloride 250 ml @ 25 mls/hr CONT PRN IV SEE I/O RECORD Last administered on 02/14/19at 16:05; Start 02/14/19 at 03:45; Stop 02/16/19 at 15:06; Status DC Info (Review Meds) 1 ea PRN 1X PRN MC SEE COMMENTS; Start 02/15/19 at 09:15 Sodium Chloride (Normal Saline Flush) 3 ml QSHIFT PRN IV AFTER MEDS AND BLOOD DRAWS; Start 02/15/19 at 09:15 Acetaminophen (Tylenol Supp) 650 mg PRN Q6HRS PRN [place] FEVER > 100.5'F; Start 02/15/19 at 09:15 Labetalol HCl (Normodyne Iv Push) 10 mg PRN Q10MIN PRN IVP HYPERTENSION, 2ND CHOICE; Start 02/15/19 at 09:15 Hydralazine HCl (Apresoline Inj) 10 mg PRN Q10MIN PRN IVP HYPERTENSION, 1ST CHOICE Last administered on 02/15/19at 11:26; Start 02/15/19 at 09:15 Nicardipine HCl 50 mg/Sodium Chloride 250 ml @ 25 mls/hr CONT PRN IV HYPERTENSION; Start 02/15/19 at 09:15; Status UNV Ondansetron HCl (Zofran) 4 mg PRN Q6HRS PRN IV NAUSEA/VOMITING; Start 02/15/19 at 09:15 Iohexol (Omnipaque 300 Mg/ml) 75 ml 1X ONCE IV Last administered on 02/15/19at 09:30; Start 02/15/19 at 09:30; Stop 02/15/19 at 09:31; Status DC Allopurinol (Zyloprim) 300 mg HS PO Last administered on 02/18/19at 22:52; Start 02/15/19 at 21:00 Atorvastatin Calcium (Lipitor) 40 mg QHS PO Last administered on 02/18/19at 22:52; Start 02/15/19 at 21:00 Losartan Potassium (Cozaar) 25 mg HS PO Last administered on 02/18/19at 22:51; Start 02/15/19 at 21:00 Vitamin D (Vitamin D3) 1,000 unit QHS PO Last administered on 02/18/19at 22:51; Start 02/15/19 at 21:00 Doxazosin Mesylate (Cardura) 1 mg QHS PO Last administered on 02/18/19at 22:52; Start 02/15/19 at 21:00 Metformin HCl (Glucophage Xr) 2,000 mg QHS PO Last administered on 02/16/19at 22:03; Start 02/15/19 at 21:00; Stop 02/17/19 at 08:14; Status DC Insulin Human Lispro (HumaLOG) 0-9 UNITS TIDWMEALS SQ Last administered on 02/19/19at 08:48; Start 02/16/19 at 08:00 Dextrose (Dextrose 50%-Water Syringe) 12.5 gm PRN Q15MIN PRN IV SEE COMMENTS; Start 02/15/19 at 20:15 Insulin Human Isoph/Insulin Regular (HumuLIN 70/30) 38 units TIDWMEALS SQ ; Start 02/17/19 at 08:00; Status UNV Insulin Glargine (Lantus Syringe) 90 unit QHS SQ ; Start 02/16/19 at 21:00; Status Cancel Non-Formulary Medication (Insulin Aspart (Novolog Flexpen)) 38 unit TIDWMEALS SQ Last administered on 02/18/19at 13:35; Start 02/17/19 at 08:00 Non-Formulary Medication 90 ea QHS SQ Last administered on 02/16/19at 22:07; Start 02/16/19 at 21:00 Iohexol (Omnipaque 350 Mg/ml) 75 ml 1X ONCE IV Last administered on 02/17/19at 09:25; Start 02/17/19 at 08:15; Stop 02/17/19 at 08:16; Status DC Metformin HCl (Glucophage Xr) 2,000 mg QHS PO ; Start 02/19/19 at 21:00 Info (CONTRAST GIVEN -- Rx MONITORING) 1 each PRN DAILY PRN MC SEE COMMENTS; Start 02/17/19 at 08:30; Stop 02/19/19 at 08:29; Status DC Active Scripts Active Reported Novolog Flexpen (Insulin Aspart) 100 Unit/1 Ml Insuln.pen 38 Unit SQ TIDWMEALS Levemir (Insulin Detemir) 100 Unit/1 Ml Vial 90 Unit SQ HS Metformin Hcl 1,000 Mg Tablet 2,000 Mg PO HS Trulicity (Dulaglutide) 0.75 Mg/0.5 Ml Pen.injctr 0.75 Mg SQ HS Levemir (Insulin Detemir) 100 Unit/1 Ml Vial 90 Unit SQ HS Losartan Potassium (Losartan Potassium) 25 Mg Tablet 25 Mg PO HS Vitamin D (Cholecalciferol (Vitamin D3)) 1,000 Unit Capsule 1 Cap PO HS 30 Days Atorvastatin Calcium 40 Mg Tablet 1 Tab PO QHS Allopurinol 300 Mg Tablet 1 Tab PO HS Allopurinol 100 Mg Tablet 1 Tab PO HS Doxazosin Mesylate 2 Mg Tablet 0.5 Tab PO HS Colcrys (Colchicine) 0.6 Mg Tablet 1 Tab PO HS 30 Days Vitals/I & O Vital Sign - Last 24 Hours 02/18/19 02/18/19 02/18/19 02/18/19 15:00 19:30 22:51 22:52 Temp 97.4 98.1 97.4 98.1 Pulse 82 84 76 76 Resp 20 20 B/P (MAP) 152/83 (106) 142/74 (96) 158/51 158/51 Pulse Ox 92 93 O2 Delivery Room Air Room Air 02/18/19 02/18/19 02/19/19 02/19/19 23:30 23:41 03:24 07:40 Temp 97.9 98.0 98.3 97.9 98.0 98.3 Pulse 82 89 93 Resp 18 18 18 B/P (MAP) 158/51 (86) 134/85 (101) 145/95 (112) Pulse Ox 95 96 94 O2 Delivery Room Air Nasal Cannula Room Air Room Air O2 Flow Rate 3.0 Intake and Output 02/18/19 02/18/19 02/19/19 15:00 23:00 07:00 Intake Total 150 ml 250 ml 200 ml Balance 150 ml 250 ml 200 ml EUGENE JAIN MD Feb 19, 2019 12:21
[2019-02-19] MEDS ORDERED: metFORMIN XR 500 MG TAB.ER.24H PO SCH (21:00)
== END 2019-02-19 13:03 | DRG 64 ==
LOC: 1 WEST ICU 03:00 → 6 SOUTH 02-15 14:17
PROVIDERS: ADMIT Internal Medicine; ATTEND Internal Medicine
DX: I61.8 Other nontraumatic intracerebral hemorrhage (principal); G93.6 Cerebral edema; G81.94 Hemiplegia, unspecified affecting left nondominant side; I31.3 Pericardial effusion (noninflammatory); Z68.41 Body mass index [BMI] 40.0-44.9, adult; E11.9 Type 2 diabetes mellitus without complications; E66.01 Morbid (severe) obesity due to excess calories; E78.5 Hyperlipidemia, unspecified; G47.33 Obstructive sleep apnea (adult) (pediatric); I11.9 Hypertensive heart disease without heart failure; I67.1 Cerebral aneurysm, nonruptured; N40.0 Benign prostatic hyperplasia without lower urinary tract symptoms; R13.10 Dysphagia, unspecified; Z82.3 Family history of stroke; Z96.1 Presence of intraocular lens; Z98.41 Cataract extraction status, right eye; Z98.42 Cataract extraction status, left eye; W18.39XA Other fall on same level, initial encounter; Y93.89 Activity, other specified; Y92.89 Other specified places as the place of occurrence of the external cause; Y99.8 Other external cause status; Z88.8 Allergy status to other drugs, medicaments and biological substances
CPT/HCPCS: 36415; 70450; 70496; 70498; 70551; 80048; 80053; 80061; 82962; 83036; 85025; 85027; 85610; 93306; J0360; J1815; J7050; Q9967; 92526; 92610; 97110; 97116; 97530; 97535; G0378; J7030